=== PATIENT | male | born 1960 | race Caucasian/White ===

== ENCOUNTER 2022-04-24 09:15 | Outpatient (RCR) | payer BC, SELFPAY | END 2022-05-20 13:22 | disposition home or self-care (01) | PROVIDERS: PCP Student in an Organized Health Care Education/Training Program; Visit Provider Physician Assistant Surgical | DX: Z98.890 Other specified postprocedural states (principal); Z51.89 Encounter for other specified aftercare | CPT/HCPCS: 97110; 97140; 97535 ==

== ENCOUNTER 2023-06-04 16:19 | Emergency (ER) | payer BC, SELFPAY ==
[2023-06-04] VITALS (32 sets, daily range): BP systolic 124–169; BP diastolic 56–85; PULSE 63–75; RESP 18; TEMP 36.9; O2SAT 94–98; BMI 24.2
--- NOTE | 2023-06-04 16:31 | CRLHL7_ITS ---
For Patients: As a result of the 21st Century Cures Act, medical imaging exams and procedure reports are released immediately into your electronic medical record. You may view this report before your referring provider. If you have questions, please contact your health care provider. INDICATION: Horse fell on patient, trauma COMPARISON: Same-day chest radiograph. TECHNIQUE: CT of the chest, abdomen, and pelvis with intravenous contrast. Multiplanar axial, coronal, and sagittal reformats were reconstructed. MIP images to improve detection of pulmonary nodules are included. Intravenous contrast: 74 mL Isovue 370. Oral contrast was not administered. FINDINGS: CHEST: Lungs: Inspiratory phase imaging. No nodules or masses. Mild right basilar atelectasis. Moderate left basilar atelectasis.. Normal appearance of the pulmonary interstitium. Pleura: Trace bilateral pleural effusion. Moderate to large left pneumothorax without any mediastinal shift. Trace right pneumothorax. Airway: Normal tracheobronchial tree. Lymph nodes: No thoracic adenopathy. Mediastinum: No pneumomediastinum. Heart and great vessels: No pericardial effusion. Normal cardiac chamber size. No atherosclerotic plaques. No aortic aneurysm. Bones: Right 5th, posterolateral, displaced by a full rib width. Right 6th posterolateral, minimally displaced. Right posterolateral 9th, minimally displace Left anterior 3rd, minimally displaced. Left lateral and anterior 4th, nondisplaced. Chest wall: Subcutaneous edema ABDOMEN AND PELVIS: Liver: Normal. No laceration. No subcapsular hematoma. Patent vasculature.. Gallbladder and biliary tree: Normal gallbladder. No biliary duct dilation. Pancreas: Normal. Spleen: Normal size. Adrenal glands: Normal. No nodules. Kidneys and bladder: Normal size and position. Few small hypodense renal lesions are likely cysts. No solid mass seen. No calculi. No urinary tract dilation. The urinary bladder is normal. GI: Normal. No dilated segments. No abnormal bowel wall thickening. Small stool burden. The appendix is normal. No mesenteric hematoma. No free air. Vessels: Normal caliber abdominal aorta with no calcified atherosclerotic plaques. Peritoneum: No free fluid. Lymph nodes: No adenopathy. Pelvis: Physiologic appearance of the pelvic organs. Bones: No fractures. No focal bone lesions. Normal for age. Abdominal wall: Normal. No hematoma. IMPRESSION: 1. Multiple bilateral rib fractures, some displaced. Trace right and moderate left pneumothorax, without mediastinal shift. Appearance is similar to the recent prior chest radiograph. 2. No abdominopelvic visceral injury. Please note that all CT scans at this facility use dose modulation, iterative reconstruction, and/or weight-based dosing when appropriate to reduce radiation dose to as low as reasonably achievable. Dictated by Lela Avila MD @ 06/04/2023 6:16:21 PM (Electronically Signed)
--- NOTE | 2023-06-04 16:32 | CRLHL7_ITS ---
For Patients: As a result of the Century Cures Act, medical imaging exams and procedure reports are released immediately into your electronic medical record. You may view this report before your referring provider. If you have questions, please contact your health care provider. INDICATION: Crush injury. A horse fell on the patient COMPARISON: None TECHNIQUE: CT examination of the cervical spine is performed without contrast using spiral technique. Thin axial, sagittal and coronal reconstructions were made. Please note that all CT scans at this facility use dose modulation, iterative reconstruction, and/or weight-based dosing when appropriate to reduce radiation dose to as low as reasonably achievable. FINDINGS: : Alignment appears normal. There is no lytic or blastic lesion and there is no acute fracture, dislocation or destructive process. There are minor degenerative changes. There are bilateral pneumothoraces, left larger than right. I discussed the presence of the bilateral pneumothorax with Dr. Blanco at 5:40 p.m. on June 04, 2023 IMPRESSION: No acute posttraumatic findings regarding the osseous structures of the thoracic spine. There are bilateral pneumothoraces. Please review the report of the chest, abdomen and pelvis for further details regarding this finding Please note that all CT scans at this facility use dose modulation, iterative reconstruction, and/or weight-based dosing when appropriate to reduce radiation dose to as low as reasonably achievable. Dictated by Khang Marcial MD @ 06/04/2023 5:43:21 PM (Electronically Signed)
--- NOTE | 2023-06-04 16:32 | CRLHL7_ITS ---
For Patients: As a result of the Century Cures Act, medical imaging exams and procedure reports are released immediately into your electronic medical record. You may view this report before your referring provider. If you have questions, please contact your health care provider. INDICATION: A horse fell on the patient. COMPARISON: None prior to today TECHNIQUE: A single view of the chest was acquired FINDINGS: TUBES AND LINES: None. HEART AND MEDIASTINUM: The heart size is normal. The mediastinal contour appears normal for patient age. LUNGS AND PLEURAL SPACES: Moderate-sized left pneumothorax and possibly a tiny right apical pneumothorax.Left basilar airspace process probably atelectasis or contusion. No visible pleural effusion OSSEOUS STRUCTURES: Multiple bilateral rib fracturesscrew. IMPRESSION: 1. Multiple bilateral rib fractures. Moderate-sized left pneumothorax and possible tiny right apical pneumothorax. No pleural effusion. 2. Left basilar airspace process probably atelectasis or contusion 3. I discussed this case with Dr. Blanco at 5:35 p.m. on June 04, 2023 Dictated by Khang Marcial MD @ 06/04/2023 5:39:41 PM (Electronically Signed)
--- NOTE | 2023-06-04 16:32 | CRLHL7_ITS ---
For Patients: As a result of the Century Cures Act, medical imaging exams and procedure reports are released immediately into your electronic medical record. You may view this report before your referring provider. If you have questions, please contact your health care provider. INDICATION: Injury. Crush injury by a horse. COMPARISON: None TECHNIQUE: CT examination of the head was performed as axial sections without intravenous contrast. Images were obtained from the vertex of the skull through the skull base. Please note that all CT scans at this facility use dose modulation, iterative reconstruction, and/or weight-based dosing when appropriate to reduce radiation dose to as low as reasonably achievable. FINDINGS: The brain shows no sign of mass lesion, mass effect, hemorrhage, or edema. The ventricles and sulci are normal in appearance for the patient`s age. The visualized portions of the orbits are normal in appearance. The osseous structures are normal in their appearance with no sign of abnormality in the skull base or calvarium. Incidental significant appearing sinus mucosal inflammatory disease especially the left maxillary sinus. IMPRESSION: Some limitation due to motion but no definite acute intracranial posttraumatic finding. Incidental significant appearing sinus mucosal inflammatory disease, especially the left maxillary sinus. Please note that all CT scans at this facility use dose modulation, iterative reconstruction, and/or weight-based dosing when appropriate to reduce radiation dose to as low as reasonably achievable. Dictated by Khang Marcial MD @ 06/04/2023 5:45:47 PM (Electronically Signed)
[2023-06-04] MEDS: ONDANSETRON 2 MG/ML inj 4 MG IVP (16:35)
[2023-06-04] MEDS: MORPHINE 4 MG/ML INJ IVP ×3 (16:37→18:56)
[2023-06-04 16:40] LABS: Basophils Percent Auto 0.6 % (0.0-3.0); Hematocrit 42.7 % (37.0-53.0); Hemoglobin* 14.2 gm/dL (13.5-17.5); Immature Granulocytes Pct Auto 0.4 %; Lymphocytes Percent Auto 17.6 % (20-44); Mean Corpuscular HGB Conc 33 gm/dL (32-36); Mean Corpuscular Hemoglobin 30 pg (26-34); Mean Corpuscular Volume 91 fL (80-100); Monocytes Percent Auto 6.1 % (0.0-11.0); Neutrophils Percent Auto 72.3 % (42.0-72.0); Platelet Count* 280 K/uL (140-440); RDW Coefficient of Variation % 12.6 % (11.5-15.5); Red Blood Count 4.71 m/uL (4.30-5.90); White Blood Count* 11.39 K/uL (4.50-11.00)
[2023-06-04 16:47] LABS: Slide Review Reflex No
--- NOTE | 2023-06-04 16:53 | ED.GENADULT ---
HPI - General Adult General Date Seen: 06/11/23 Chief complaint: Fall/Minor Trauma Stated complaint: Landed on by horse--ribs injured, hard to breathe Time Seen by Provider: 06/04/23 16:31 Source: patient Mode of arrival: ambulatory Limitations: no limitations History of Present Illness HPI narrative: Patient is 63-year-old male with no pertinent medical problems presenting to the emergency department for difficulty breathing. He states shortly prior to arrival he was riding a horse when he fell backwards landing on top of him. Says most of his pain is to his right chest it is difficult for him to breathe right now. He is unsure if the difficulties due to the pain or if it was from the something else. Also complaining of left ankle pain. States he did not hit his head. Denies any other injuries at this time. Patient is sitting up in bed right now and looks very uncomfortable. Related Data Home Medications Medication Instructions Recorded Confirmed levothyroxine 88 mcg tablet 88 mcg PO DAILY 03/25/22 06/04/23 tamsulosin 0.4 mg capsule (Flomax) 0.4 mg PO DAILY 03/26/22 06/04/23 metronidazole 250 mg tablet 250 mg PO BID 06/04/23 06/04/23 rosuvastatin 40 mg tablet 40 mg PO DAILY 06/04/23 06/04/23 Allergies Allergy/AdvReac Type Severity Reaction Status Date / Time aspirin Allergy Severe Throat Verified 06/04/23 17:24 swelling codeine Allergy Severe Throat Verified 06/04/23 17:24 swelling Review of Systems Status of ROS: Reports: 10 or more systems reviewed and unremarkable except as noted in History and below [facility] Medical History Arthritis GERD (gastroesophageal reflux disease) Hyperlipidemia Thyroid disease Surgical History History of herniorrhaphy History of shoulder surgery History of surgery on left wrist History of surgery on upper extremity (02/11/22) Family History Father Stroke Esophageal cancer Social History (Updated 05/28/22 @ 08:47 by Dafne Davis ~ [place], [facility] [address]) Narrative: former chewing tobacco user quit 2006 Smoking Status: Never smoker Do you use any of these nicotine containing products: None Second hand tobacco smoke exposure: No How often do you have a drink containing alcohol: 2-3 times a week How many standard drinks containing alcohol do you have on a typical day: 1 or 2 How often do you have six or more drinks on one occasion: Never AUDIT-C Alcohol total score: 3 Non-prescribed substance use: denies use service: No Exam Narrative: Exam Narrative: Const: Well-nourished, Well-developed, in moderate distress Eyes: PERRL, no conjunctival injection, and symmetrical lids HENT: Atraumatic external nose and ears. Moist mucous membranes. Neck: Symmetric, trachea midline, No thyromegaly. CVS: RRR, No murmurs or gallops. Peripheral pulses 2+ and equal in all extremities RESP: Increased respiratory at rest for t. Clear to auscultation bilaterally. GI: Nontender/Nondistended, No rebound or guarding. MSK: Swelling and pain noted left ankle. No other pain noted on palpation other than right chest. No midline spinal tenderness Skin: Warm, Dry. Multiple abrasions to left shoulder Neuro: Normal Muscle tone, No focal neurological deficits. GCS 15 Psych: Awake, Alert, & Oriented x3. Appropriate mood and affect. Const: Vital Signs, click to edit/add: Vital Signs - 24 hr 06/04/23 16:39 06/04/23 16:40 06/04/23 16:41 Temperature 98.5 F Pulse Rate 70 67 Pulse Rate [Right Pulse Oximeter] 73 Respiratory Rate 18 Blood Pressure 164/81 H Blood Pressure [Le ft Upper Arm] 169/85 H Pulse Oximetry 98 98 98 Oxygen Delivery Me thod Room Air 06/04/23 16:41 06/04/23 16:42 06/04/23 16:43 Temperature Pulse Rate 67 65 66 Pulse Rate [Right Pulse Oximeter] Respiratory Rate Blood Pressure 157/81 H Blood Pressure [Le ft Upper Arm] Pulse Oximetry 97 98 98 Oxygen Delivery Me thod 06/04/23 16:50 06/04/23 16:52 06/04/23 17:26 Temperature Pulse Rate 65 64 68 Pulse Rate [Right Pulse Oximeter] Respiratory Rate Blood Pressure 156/81 H 141/70 H Blood Pressure [Le ft Upper Arm] Pulse Oximetry 97 97 98 Oxygen Delivery Me thod 06/04/23 17:27 06/04/23 17:28 06/04/23 17:30 Temperature Pulse Rate 70 68 Pulse Rate [Right Pulse Oximeter] Respiratory Rate Blood Pressure Blood Pressure [Le ft Upper Arm] Pulse Oximetry 97 97 95 Oxygen Delivery Me thod 06/04/23 17:32 06/04/23 17:40 06/04/23 17:47 Temperature Pulse Rate 70 66 67 Pulse Rate [Right Pulse Oximeter] Respiratory Rate Blood Pressure 147/68 H 141/70 H Blood Pressure [Le ft Upper Arm] Pulse Oximetry 96 95 98 Oxygen Delivery Me thod 06/04/23 17:50 06/04/23 18:00 06/04/23 18:02 Temperature Pulse Rate 68 67 Pulse Rate [Right Pulse Oximeter] Respiratory Rate Blood Pressure 129/56 L Blood Pressure [Le ft Upper Arm] Pulse Oximetry 98 98 Oxygen Delivery Me thod 06/04/23 18:10 06/04/23 18:17 06/04/23 18:20 Temperature Pulse Rate 70 69 69 Pulse Rate [Right Pulse Oximeter] Respiratory Rate Blood Pressure 134/68 Blood Pressure [Le ft Upper Arm] Pulse Oximetry 96 95 95 Oxygen Delivery Me thod 06/04/23 18:30 06/04/23 18:32 Temperature Pulse Rate 72 73 Pulse Rate [Right Pulse Oximeter] Respiratory Rate Blood Pressure 149/70 H Blood Pressure [Le ft Upper Arm] Pulse Oximetry 97 96 Oxygen Delivery Me thod Course Vital Signs Vital signs: Initial Vital Signs Pulse Rate 70 06/04/23 16:39 Pulse Oximetry 98 06/04/23 16:39 Vital Signs Pulse Rate 70 06/04/23 16:39 Pulse Oximetry 98 06/04/23 16:39 Temperature 98.5 F 06/04/23 16:41 Pulse Rate 73 06/04/23 18:32 Respiratory Rate 18 06/04/23 16:41 Blood Pressure 149/70 H 06/04/23 18:32 Pulse Oximetry 96 06/04/23 18:32 Oxygen Delivery Method Room Air 06/04/23 16:41 Medical Decision Making MDM Narrative Medical decision making narrative: Patient 63-year-old male presenting emergency department after a horse fell on him. Due to the nature of the incident the team trauma activation was called. I was at the patient's bedside immediately upon arrival to the emergency department. He is complaining of right-sided chest pain in difficulty breathing. He is tender palpation the right side of the chest but is talking in full sentences. At this into lung sounds and her lung sounds throughout. At this time is not you to be having tension pneumothorax. I causing immediate chest x-ray at bedside. They came undone it and you could clearly see several rib fractures. I cannot definitively tell if he has any pneumothoraxes at this time. Did initially with injury a laguna scan of this patient was ordered. Also ordered x-rays of his left ankle and foot due to pain. Patient was given morphine for pain. CBC and BMP were ordered. Lab work returns showing no concerning abnormalities. After the CT scan of the chest returned to could clearly see a moderate-sized left pneumothorax and a small right pneumothorax. For patient appears to have multiple rib fractures. We will transfer the patient [facility]. I spoke to Dr. Archer and he recommends a 14 Barbadian catheter at least for traumas and recommends against the pigtail at this time says because he states the trauma team prefers 14 Barbadian and larger in traumas even if there is only a pneumothorax. The largest size we had near the 14 Barbadian was a 20 Barbadian and this was placed. See procedure note. Patient tolerated the procedure well. Postprocedure chest x-ray was ordered. Patient's CT results have returned showing multiple rib fractures bilaterally. They range in and nondisplaced to 1 full rib segment displaced. Cervical spine head CT showed no concerning abnormalities. X-rays of the foot returned showing concern for an avulsion fracture. He is going to a level 1 trauma center and Renal-necessary to worry about splinting his foot right now as it is more important he gets transferred sooner. Imaging shows no acute intra-abdominal issues. Patient will be transferred via [facility] Lab Data Labs: Lab Results 06/04/23 Range/Units 14:33 WBC 11.39 H (4.50-11.00) K/uL RBC 4.71 (4.30-5.90) m/uL Hgb 14.2 (13.5-17.5) gm/dL Hct 42.7 (37.0-53.0) % MCV 91 (80-100) fL MCH 30 (26-34) pg MCHC 33 (32-36) gm/dL RDW Coeff of Ayla 12.6 (11.5-15.5) % Plt Count 280 (140-440) K/uL Neut % (Auto) 72.3 H (42.0-72.0) % Lymph % (Auto) 17.6 L (20-44) % [place] % (Auto) 6.1 (0.0-11.0) % Eos % (Auto) 3.0 (0.0-7.0) % Baso % (Auto) 0.6 (0.0-3.0) % Neut # (Auto) 8.20 H (1.7-7.0) K/uL Lymph # (Auto) 2.00 (0.90-2.90) K/uL [place] # (Auto) 0.70 (0.00-0.90) K/UL Eos # (Auto) 0.30 (0.00-0.50) K/uL Baso # (Auto) 0.10 (0.00-0.30) K/uL Abs Immat Gran (auto) 0.00 (0.00-0.30) K/uL Imm/Tot Granulo (auto) 0.4 % Sodium 137 (135-149) mmol/L Potassium 4.0 (3.6-5.1) mmol/L Chloride 99 (96-114) mmol/L Carbon Dioxide 29 (20-32) mmol/L Anion Gap 9 (7-15) mEq/L BUN 19 (7-30) mg/dL Creatinine 0.9 (0.5-1.5) mg/dL Estimated Creat Clear 70.00 Estimated GFR 97 ml/min Glucose 141 H (60-115) mg/dL Calcium 9.8 (8.4-10.6) mg/dL Critical Care Time Critical Care Time Critical Care Time: Yes Attestation: The patient required my highest level preparedness to intervene emergently and I personally spent this critical care time directly and personally managing the patient. This critical care time included: Obtaining a history; Examining the patient; Pulse oximetry; Ordering and reviewing of studies; Arranging urgent treatment with development of a management plan; Evaluation of patients response to treatment; Frequent reassessment discussions with other providers. This critical care time was performed to assess and manage the high probability of imminent life-threatening deterioration that could result in multiorgan failure. It was exclusive of separate billable procedures and treating other patients and teaching time. Total Critical Care Time in Minutes: 33 Discharge Plan Discharge Clinical Impression: Multiple fractures of rib involving four or more ribs Pneumothorax Qualifiers: Pneumothorax type: traumatic Encounter type: initial encounter Qualified Code(s): S27.0XXA - Traumatic pneumothorax, initial encounter Patient Disposition: Xfer Other Discharge Location: [facility] Condition: Stable Prescriptions: No Action levothyroxine 88 mcg tablet 88 mcg PO DAILY tamsulosin [Flomax] 0.4 mg capsule 0.4 mg PO DAILY rosuvastatin 40 mg tablet 40 mg PO DAILY metronidazole 250 mg tablet 250 mg PO BID Stand Alone Forms: [employer] Info Instructions Procedures Chest Tube Chest Tube 1: Pre procedure diagnosis: Pneumothorax Post procedure diagnosis: Pneumothorax Written consent by: patient Procedure: placement Site marking: site marked Verification/time out: correct patient, correct site and correct procedure Name of person performing procedure: Milton Blanco Local Anesthetic: lidocaine 1% Amount of anesthesia used (mL): 8 Chest Tube Location: left, mid axillary line and fourth interspace Tube type: chest tube (16 inch 20 Barbadian) Chest Tube Prep: Yes betadine prep and sterile drapes applied Incision Made With: #11 blade Post Procedure: sutured to skin and sterile dressing applied Tube Drainage: none Post Procedure CXR?: Yes Estimated blood loss (if any): less than 5mls Patient Tolerated Procedure: Yes
[2023-06-04 16:54] LABS: Chloride* 99 mmol/L (96-114)
--- NOTE | 2023-06-04 16:54 | CRLHL7_ITS ---
For Patients: As a result of the Century Cures Act, medical imaging exams and procedure reports are released immediately into your electronic medical record. You may view this report before your referring provider. If you have questions, please contact your health care provider. INDICATION: Fall COMPARISON: Same-day foot radiograph TECHNIQUE: Three views left ankle. FINDINGS: BONES: Linear osseous fragment measuring about 7 mm seen at the lateral mid foot. Donor site not clear. This corresponds to the fracture also seen on the radiographs from today. Normal mineralization. No focal bone lesion. JOINT: Normal ankle joint alignment. No ankle joint effusion. Joint spaces: Normal. SOFT TISSUES: Swelling. No foreign body. IMPRESSION: Left lateral midfoot avulsive fracture, of unclear donor site. Dictated by Lela Avila MD @ 06/04/2023 6:20:59 PM (Electronically Signed)
--- NOTE | 2023-06-04 16:54 | CRLHL7_ITS ---
For Patients: As a result of the Cures Act, medical imaging exams and procedure reports are released immediately into your electronic medical record. You may view this report before your referring provider. If you have questions, please contact your health care provider. INDICATION: Trauma, fall COMPARISON: Same day ankle radiographs TECHNIQUE: Three views left foot. FINDINGS: BONES: Bone fragment along the lateral distal calcaneus, near the calcaneocuboid articulation. Donor site not clear. Fragment is about 9 mm in longest dimension. Type 2 navicular. Normal mineralization. No focal bone lesion. JOINT: Normal joint alignment. Joint spaces: Normal. Soft Tissues: Swelling. No foreign body. IMPRESSION: Avulsive type fracture along the lateral distal calcaneus, of unclear origin. Dictated by Lela Avila MD @ 06/04/2023 6:19:23 PM (Electronically Signed)
[2023-06-04 16:55] LABS: Sodium* 137 mmol/L (135-149)
[2023-06-04 16:57] LABS: Anion Gap 9 mEq/L (7-15); Carbon Dioxide* 29 mmol/L (20-32); Creatinine* 0.9 mg/dL (0.5-1.5); Estimated Glomerular Filt Rate 97 ml/min
[2023-06-04 16:58] LABS: Blood Urea Nitrogen* 19 mg/dL (7-30); Calcium* 9.8 mg/dL (8.4-10.6); Glucose* 141 mg/dL (60-115)
--- NOTE | 2023-06-04 18:48 | CRLHL7_ITS ---
For Patients: As a result of the Century Cures Act, medical imaging exams and procedure reports are released immediately into your electronic medical record. You may view this report before your referring provider. If you have questions, please contact your health care provider. INDICATION: Chest tube placement TECHNIQUE: Chest 1 view. Permanently recorded images are archived. COMPARISON: Chest radiograph from earlier the same day. FINDINGS: Lines and tubes: Interval placement of a left apical directed chest tube. Cardiovascular and mediastinum: Heart size and vasculature are normal in caliber and appearance. Lungs and pleural spaces: Persistent left basilar opacity. No pleural effusion. No definite pneumothorax visualized. Bones and soft tissues: Multiple bilateral rib fractures. IMPRESSION: Interval placement of a left apical E directed chest tube. No pneumothorax visualized bilaterally. Persistent left basilar opacity, likely atelectasis or contusion. Dictated by Neymar Sanchez MD @ 06/04/2023 8:09:12 PM (Electronically Signed)
--- NOTE | 2023-06-04 19:25 | ED.NURSE ---
to [facility] via [facility]. 2nd iv was placed in left hand #18 j.
--- NOTE | 2023-06-04 19:31 | ED.NURSE ---
report was called to yessy mchugh at [facility] [place].
== END 2023-06-04 19:25 | disposition other institution (70) ==
PROVIDERS: Emergency Provider Student in an Organized Health Care Education/Training Program; PCP Student in an Organized Health Care Education/Training Program
DX: S27.0XXA Traumatic pneumothorax, initial encounter (principal); S22.43XA Multiple fractures of ribs, bilateral, initial encounter for closed fracture; V80.010A Animal-rider injured by fall from or being thrown from horse in noncollision accident, initial encounter
CPT/HCPCS: 32551; 36415; 70450; 71045; 71260; 72125; 73610; 73630; 74177; 80048; 85025; 94761; 96374; 96375; 96376; 99284; 99291; J2270; J2405; Q9967

== ENCOUNTER 2023-06-04 19:13 | Outpatient (CLI) | payer BC, SELFPAY ==
--- OUTSIDE RECORDS SUMMARY | 2023-06-07 14:32 | XMS_ITS | Continuity of Care Document ---
Author Name Unknown Organization [facility] Address [address] [address] [place] [address] Phone Care Team Providers Care Jet Handler Name Role Phone Kelsi Buckley CRNA Unavailable Unavailable Allergies, Adverse Reactions, Alerts Substance Reaction Status Criticality codeine inflammation of airways Active No I nformation aspirin inflammation of airways Active No I nformation Medications Medication Instructions Dosage Effective Dates (start - stop) Status Comments tamsulosin 0.4 mg capsule take 1 capsule by oral route every day 1/2 hour following the same meal each day 0.4 MG - Active levothyroxine 88 mcg capsule take 1 Tablet by Oral route every day 1 Tablet - Active GLUCOSAMINE SULFATE (unknown strength) take by Oral route every day Not Available - Active Vitamin D3 2,000 unit capsule take 1 by Oral route every 1 - Active rosuvastatin 40 mg tablet take 1 tablet by oral route every day 40 MG - No Longer Active Synthroid 75 mcg tablet take 1 tablet by ORAL route every day 75 MCG - No Longer Active simvastatin 20 mg tablet take 1 tablet (20MG) by ORAL route every day 20 MG - No Longer Active ranitidine 150 mg capsule take 1 capsule (150MG) by oral route 2 times every day - Mar-31-2023 No Longer Active Procedures Procedure Date Colonoscopy Flex; W/bx 1/mx Level Iv-surg Path Gross/micro 23 Colonoscopy Flex; W/remov Les- 17 Level Iv-surg Path Gross/micro 17 Colonoscopy Flex; W/remov Les- 12 Level Iv-surg Path Gross/micro 12 Advance Directives Directive Yes / No Effective Date File Name No Information Encounters Encounter Description Practice Location Reason(s) For Visit Diagnoses Date Provider Providers Copied on Encounter [facility], [address] [address], [place], [place], [id number], [place] tel:[phone] [facility] No Information 3 Marcio Dolan. [address], [id number], [place]. tel:[phone] Referring Provider: Jacky Ma, [address], [address]. tel:[phone] [facility], [address] [address], [place], [place], [id number], [place] tel:[phone] [facility] GI Symptoms or Concerns (chief complaint) Polyp of colonEncounter for screening for malignant neoplasm of colonPersonal history of colonic polypsBenign neoplasm of ascending colonBenign neoplasm of sigmoid colonBenign neoplasm of ascending colon 3 Virgie Rico. [address], [id number], [place]. tel:[phone] Referring Provider: Referral Self. [facility], [address] [address], [place], [place], [id number], [place] tel:[phone] [facility] No Information 3 Jun Quiñonez. [address] [facility], [address], [id number], [place]. tel:[phone] [facility], [address] [address], [place], [place], [id number], [place] tel:[phone] [facility] Colorectal polyp detected on colonoscopyEncou nter for screening for malignant neoplasm of colonBenign neoplasm of transverse colonPersonal history of colonic polyps 7 Jason Man. [address], [id number], [place]. tel:[phone] Referring Provider: Referral Self. [facility], [address] [address], [place], [place], [id number], tel:[phone] [facility] Colon Cancer ScreeningBenign Neoplasm ColonColon Cancer ScreeningBenign Neoplasm Colon 2 Jase Campbell. 3001 [facility] [address], [place], [id number], [place]. tel:[phone] Family History Family Member Type Diagnosis Age At Onset Daughter Problem (finding) Alive and well Father Problem (finding) Cancer, esophageal Son Problem (finding) Alive and well Father Problem (finding) Father Problem (finding) malignant neoplasm of p harynx Mother Problem (finding) Sister Problem (finding) Alive and well Brother Problem (finding) Alive and well Father Problem (finding) Colon polyps Daughter Problem (finding) Thyroid disorder Immunizations Vaccine Date Status Comments Afluria Qd administered Note: [facility] bi-directional interface ; Source: Other Registry SARS-COV-2 (COVID-19) vaccin e, mRNA, spike protein, LNP, preservative free, 30 mcg/0.3mL dose administered Note: [facility] bi-direct ional interface ; Source: Other Registry SARS-COV-2 (COVID-19) vaccin e, mRNA, spike protein, LNP, preservative free, 30 mcg/0.3mL dose administered Note: [facility] bi-direct ional interface ; Source: Other Registry SARS-COV-2 (COVID-19) vaccin e, mRNA, spike protein, LNP, preservative free, 30 mcg/0.3mL dose administered Note: [facility] bi-direct ional interface ; Source: Other Registry Afluria Qd administered Note: [facility] bi-directional interface ; Source: Other Registry Afluria Qd administered Note: [facility] bi-directional interface ; Source: Other Registry zoster vaccine recombinant administered N ote: [facility] bi-directional interface ; Source: Other Registry zoster vaccine recombinant administered N ote: [facility] bi-directional interface ; Source: Other Registry Seasonal, quadrivalent, recombinant, injectable influenza vaccine, preservative free administered Note: [facility] bi-direct ional interface ; Source: Other Registry Afluria Qd administered Note: [facility] bi-directional interface ; Source: Other Registry Afluria Qd administered Note: [facility] bi-directional interface ; Source: Other Registry Afluria Qd administered Note: [facility] bi-directional interface ; Source: Other Registry Afluria Qd administered Note: [facility] bi-directional interface ; Source: Other Registry Afluria Qd administered Note: [facility] bi-directional interface ; Source: Other Registry tetanus toxoid, reduced diphtheria toxoid, and acellular pertussis vaccine, adsorbed administered Note: [facility] b i-directional interface ; Source: Other Registry Afluria Qd administered Note: [facility] bi-directional interface ; Source: Other Registry Influenza, seasonal, injectable administe red Note: [facility] bi- directional interface ; Source: Other Registry Influenza, seasonal, injectable administe red Note: [facility] bi- directional interface ; Source: Other Registry Influenza, seasonal, injectable administe red Note: [facility] bi- directional interface ; Source: Other Registry Afluria Qd administered Note: [facility] bi-directional interface ; Source: Other Registry Novel [id number], all formulations administered Note: [facility] bi-direct ional interface ; Source: Other Registry Influenza, seasonal, injectable administe red Note: [facility] bi- directional interface ; Source: Other Registry Guyanese Encephalitis Vaccine [facility] administ ered Note: [facility] bi- directional interface ; Source: Other Registry typhoid vaccine, live, oral administered Note: [facility] bi-directional interface ; Source: Other Registry Guyanese Encephalitis Vaccine [facility] administ ered Note: [facility] bi- directional interface ; Source: Other Registry Influenza, seasonal, injectable administe red Note: [facility] bi- directional interface ; Source: Other Registry Payers Payer name Insurance type Covered green party ID Authoriza titank(s) Blue Plus Of [facility] [id number] Social History Type Description Quantity Date Captured Comments Sex Male Smoking Status No Information Chief Complaint And Reason For Visit No Information Reason For Referral Reason For Referral No Information History Of Present Illness Encounter Date Complaint History Of Prese nt Illness GI Symptoms or Concerns Functional Status Date Functional Assessmen t No Information Medications Administered Medication Instructions Dosage Effective Dates (start - stop) Status Comments rosuvastatin 40 mg tablet take 1 tablet by oral route every day 40 MG - No Longer Active Instructions Date Instruction Additional Infor mation Colon Polyps Related to Polyp of colon Colon Cancer Prevention Related to Polyp of colon Colon Polyps Related to Polyp of colon Colon Cancer Prevention Related to Polyp of colon Colon Cancer Prevention Related to Colorectal polyp detected on colonoscopy Colon Polyps Related to Color ectal polyp detected on colonoscopy Assessments Type Assessment Date No Information Patient Care Teams Name Effective Dates (start - stop) Status Members No Information
== END 2023-06-04 19:14 | disposition home or self-care (01) ==
LOC: AMB 06-07 14:30
PROVIDERS: PCP Student in an Organized Health Care Education/Training Program; Visit Provider Family Medicine
DX: J93.9 Pneumothorax, unspecified (principal); S22.49XS Multiple fractures of ribs, unspecified side, sequela
CPT/HCPCS: A0425; A0434

== ENCOUNTER 2024-01-07 07:44 | Outpatient (RCR) | payer BC, SELFPAY | END 2024-04-06 12:42 | disposition home or self-care (01) | PROVIDERS: PCP Student in an Organized Health Care Education/Training Program; Visit Provider Student in an Organized Health Care Education/Training Program | DX: H81.11 Benign paroxysmal vertigo, right ear (principal); Z51.89 Encounter for other specified aftercare | CPT/HCPCS: 97161 ==

== ENCOUNTER 2024-01-30 10:44 | Outpatient (CLI) | payer BC, SELFPAY ==
--- NOTE | 2024-01-30 11:00 | CRLHL7_ITS ---
For Patients: As a result of the Cures Act, medical imaging exams and procedure reports are released immediately into your electronic medical record. You may view this report before your referring provider. If you have questions, please contact your health care provider. Indication: Increasing cough, lung mass Technique: PA and lateral views of the chest. Comparison: 06/04/2023 Findings: Normal cardiomediastinal silhouette. No focal consolidation, pleural effusions, or visualized pneumothorax. Chronic right-sided rib fractures. Interval removal of left chest tube. Left humeral head suture anchors. Impression: No acute cardiopulmonary disease. No lung mass is visualized. Dictated by Ramirez Reyes MD @ 01/30/2024 12:17:03 PM (Electronically Signed)
== END 2024-01-30 10:45 | disposition home or self-care (01) ==
PROVIDERS: PCP Student in an Organized Health Care Education/Training Program; Visit Provider Surgery
DX: R91.8 Other nonspecific abnormal finding of lung field (principal); R05.9 Cough, unspecified
CPT/HCPCS: 71046

== ENCOUNTER 2024-02-23 07:22 | Outpatient (CLI) | payer BC, SELFPAY ==
[2024-02-23 07:50] LABS: Creatinine* 0.9 mg/dL (0.5-1.5); Estimated Glomerular Filt Rate 97 ml/min
--- NOTE | 2024-02-23 08:00 | CRLHL7_ITS ---
For Patients: As a result of the Century Cures Act, medical imaging exams and procedure reports are released immediately into your electronic medical record. You may view this report before your referring provider. If you have questions, please contact your health care provider. INDICATION: Left lung mass TECHNIQUE: CT chest with 75 mL Isovue 370 IV contrast. COMPARISON: 01/30/2024 and 06/04/2023 chest x-rays, 06/04/[address] FINDINGS: Lungs and pleura: New 2.4 x 1.8 x 4.2 cm mass in the medial left lung apex adjacent to the pleura in the left subclavian artery. This causes mass effect on the subsegmental bronchus that courses anterior. The tip of the chest tube was in this region on the 06/04/2023 chest x-ray. Remainder of the lungs are clear Heart and vasculature: Heart size is normal. Thoracic aorta and pulmonary artery are normal in caliber. Lymph nodes/mediastinum: No mediastinal, hilar, or axillary adenopathy. Thyroid gland is normal. Chest wall: No masses. Upper abdomen: Normal. Bones: Multiple chronic right rib fracture deformities. IMPRESSION: 1. 2.4 x 1.8 x 4.2 cm left lung apex mass is new from the prior CT. 2. No adenopathy. Please note that all CT scans at this facility use dose modulation, iterative reconstruction, and/or weight-based dosing when appropriate to reduce radiation dose to as low as reasonably achievable. Dictated by Poli Newton MD @ 02/24/2024 10:32:48 AM (Electronically Signed)
== END 2024-02-23 07:23 | disposition home or self-care (01) ==
LOC: CT 07:23
PROVIDERS: PCP Student in an Organized Health Care Education/Training Program; Visit Provider Surgery
DX: R91.8 Other nonspecific abnormal finding of lung field (principal)
CPT/HCPCS: 36415; 71260; 82565; Q9967

== ENCOUNTER 2024-07-30 09:00 | Outpatient (RCR) | payer BC, SELFPAY | END 2024-10-01 08:37 | disposition home or self-care (01) | PROVIDERS: PCP Student in an Organized Health Care Education/Training Program; Visit Provider Orthopaedic Surgery | DX: M75.41 Impingement syndrome of right shoulder (principal); M75.51 Bursitis of right shoulder; M75.20 Bicipital tendinitis, unspecified shoulder; S46.011D Strain of muscle(s) and tendon(s) of the rotator cuff of right shoulder, subsequent encounter; M25.511 Pain in right shoulder; Z51.89 Encounter for other specified aftercare | CPT/HCPCS: 97110; 97112; 97161; 97162 ==

== ENCOUNTER 2024-10-04 05:38 | Emergency (ER) | payer BC, SELFPAY ==
--- OUTSIDE RECORDS SUMMARY | 2024-10-04 05:40 | XMS_ITS | Encounter Summary ---
Author Organization [facility] Address [address] [place] [address] Care Team Providers Care Computer Customer Support Specialist Name Role Phone Solitario Trevino MD Primary Care Provider Abdirashid Lopez MD Primary Care Provider + [phone] Abdirashid Lopez MD Unavailable [phone] Abdirashid Lopez MD Unavailable [phone] Darshan Whyte Unavailable Unavailable Encounter Details Date Type Department Care Team (Late st Contact Info) Description 04/17/2013 MyC Medical Advice [facility] [address] [place] [phone] Solitario Trevino MD [address] [facility] [address] [place] [address] Social History Tobacco Use Types Packs/Day Years Used Date Smoking Tobacco: Never Smokeless Tobacco: Never Alcohol Use Standard Drinks/Week Comments Yes 0 (1 standard drink = 0.6 oz pur e alcohol) Occasionally Sex and Gender Information Value Date Recorded Sex Assigned at Male 06/25/2019 7:25 AM CDT 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 Gender Identity Male 06/25/2019 7:25 AM CDT Sexual Orientation Straight 06/25/2019 7: 25 AM CDT documented as of this encounter Plan of Treatment Not on file documented as of this encounter Visit Diagnoses Not on filedocumented in this encounter Care Teams Computer Customer Support Specialist Relationship Specialty Start Date End Date Solitario Trevino MD [address] [place] [address] PCP - General Internal Medicine 04/14/13 05/08/15 Abdirashid Lopez MD [address] [place] [address] PCP - General Family Practice 05/09/15 07/07/22 [place] [address] [place] [address] PCP - Assigned PCP 05/08/14 11/10/18 [place] [address] [place] [address] Assigned PCP 05/08/14 05/24/22 Darshan Whyte Personal Advocate & Liaison (PAL) Family Practice 06/22/20 07/02/20 documented as of this encounter
--- OUTSIDE RECORDS SUMMARY | 2024-10-04 05:40 | XMS_ITS | Encounter Summary ---
Author Organization [facility] Address [address] [place] [address]. [place] [address] Care Team Providers Care Oil Truck Driver Name Role Phone Abdirashid Lopez MD Primary Care Provider + [phone] Abdirashid Lopez MD Unavailable [phone] Abdirashid Lopez MD Unavailable [phone] Darshan Whyte Unavailable Unavailable Encounter Details Date Type Department Care Team (Late st Contact Info) Description 09/30/2018 MyC Medical Advice [address] [address] [place] [address] [place] [address] Social History Tobacco Use Types Packs/Day Years Used Date Smoking Tobacco: Never Smokeless Tobacco: Never Alcohol Use Standard Drinks/Week Comments Yes 3.3 (1 standard drink = 0.6 oz p ure alcohol) occ PHQ-2 Answer Date Recorded PHQ-2 Score 0 09/15/2018 Sex and Gender Information Value Date Recorded Sex Assigned at Male 06/25/2019 7:25 AM CDT 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 Gender Identity Male 06/25/2019 7:25 AM CDT Sexual Orientation Straight 06/25/2019 7: 25 AM CDT Occupation Industry Job Start Date Job End Date Not on file Not on file Not on file Not on file documented as of this encounter Plan of Treatment Not on file documented as of this encounter Visit Diagnoses Not on filedocumented in this encounter Care Teams Oil Truck Driver Relationship Specialty Start Date End Date Abdirashid Lopez MD PCP - General Family Practice 05/09/15 07/07/22 [place] [address] [place] [address] PCP - Assigned PCP 05/08/14 11/10/18 [place] [address] [place] [address] Assigned PCP 05/08/14 05/24/22 Darshan Whyte Personal Advocate & Liaison (PAL) [facility] Practice 06/22/20 07/02/20 documented as of this encounter
--- OUTSIDE RECORDS SUMMARY | 2024-10-04 05:40 | XMS_ITS | Clinical Summary ---
Author Organization [facility] Address [address] [place] [address] Care Team Providers Care Fire Adjuster Name Role Phone Unavailable Primary Care Provider Unavailabl e Allergies Active Allergy Reactions Criticality Noted Date Comments Aspirin 02/23/2008 Morphine And Codeine 02/23/2008 Medications Misc Natural Products (GLUCOSAMINE CHOND COMPLEX/MSM) TABSIndications:Florence garrett general medical examination at a health care facility 3 Active Cholecalciferol (VITAMIN D) 400 UNITS capsuleIndications: Vitamin D deficiency disease Take 1 capsule by mouth daily 30 capsule 3 Active levothyroxine (SYNTHROID/LEVOTHRO ID) 88 MCG tabletIndications:A cquired hypothyroidism Take 1 tablet (88 mcg) by mouth daily 90 tablet 3 0 Active simvastatin (ZOCOR) 20 MG tabletIndications:H yperlipidemia LDL goal <130 Take 1 tablet (20 mg) by mouth At Bedtime 90 tablet 4 0 Active omeprazole (PRILOSEC) [address] capsuleIndications: Gastroesophageal reflux disease without esophagitis TAKE 1 CAPSULE(40 MG) BY MOUTH DAILY 90 capsule 1 Active Active Problems Problem Noted Date Diagnosed Date Hypothyroidism 05/12/2014 Hyperlipidemia LDL goal <130 04/14/2013 GERD (gastroesophageal reflux disease) 3 Immunizations Name Administration Dates Next Due HEPA 04/19/2002,10/19/2001 HepB 04/19/2002,10/19/2001,09/14/2001 Influenza (IIV3) PF 06/15/2007 Influenza Vaccine 18-64 (Flublok) 06/10/2019 Influenza Vaccine >6 months,quad, PF 06/08/2020, 06/10/2018,05/30/2017 Anguillan Encephalitis SQ 03/09/2008,03/02/2008,0 02/23/2008 TDAP Vaccine (Adacel) 08/21/2004 TDAP Vaccine (Boostrix) 04/29/2014 Typhoid IM 10/19/2001 Typhoid Oral 02/23/2008 Yellow Fever 10/19/2001 Zoster recombinant adjuvanted (SHINGRIX) 020,06/28/2019 Family History Medical History Relation Comments Cancer Father age 68, Gas tric [place]. also had HTN, hi chol Coronary Artery Disease Mother Skin Cancer Mother Basal cell Relation Status Comments Father Mother Social History Tobacco Use Types Packs/Day Years Used Date Smoking Tobacco: Never Smokeless Tobacco: Never Alcohol Use Standard Drinks/Week Comments Yes 3.3 (1 standard drink = 0.6 oz p ure alcohol) occ PHQ-2 Answer Date Recorded PHQ-2 Score 0 06/20/2020 Adolescent Education Answer Date Record ed Getting School Help Needed Not on file 06/02 Sex and Gender Information Value Date Recorded Sex Assigned at Male 06/25/2019 7:25 AM CDT 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:39 AM CLINICAL AIDE Gender Identity Male 06/25/2019 7:25 AM CDT Sexual Orientation Straight 06/25/2019 7: 25 AM CDT Occupation Industry Job Start Date Job End Date Not on file Not on file Not on file Not on file Last Filed Vital Signs Vital Sign Reading Time Taken Comments Blood Pressure 112/64 06/20/2020 7:07 AM CDT Pulse 55 06/20/2020 7:07 AM CDT Temperature 36.6 C (97.9 F) 06/20/2020 7:07 AM CDT Respiratory Rate 16 06/20/2020 7:07 AM CDT Oxygen Saturation 97% 06/20/2020 7:07 AM CDT Inhaled Oxygen Concentration - - Weight 64.4 kg (142 lb) 06/20/2020 7:07 AM CDT Height 167.6 cm (5' 6) 06/20/2020 7:07 AM CDT Body Mass Index 22.92 06/20/2020 7:07 AM CDT Plan of Treatment Not on file [place] [address]
--- OUTSIDE RECORDS SUMMARY | 2024-10-04 05:40 | XMS_ITS | Encounter Summary ---
Author Organization [facility] Address [address] [place] [address] Care Team Providers Care Rerecording Mixer Name Role Phone Abdirashid Lopez MD Primary Care Provider + [phone] Abdirashid Lopez MD Unavailable [phone] Darshan Whyte Unavailable Unavailable Encounter Details Date Type Department Care Team (Late st Contact Info) Description 06/14/2019 MyC Medical Advice [address] [address] [place] [address] [place], [place] [id number] Social History Tobacco Use Types Packs/Day Years Used Date Smoking Tobacco: Never Smokeless Tobacco: Never Alcohol Use Standard Drinks/Week Comments Yes 3.3 (1 standard drink = 0.6 oz p ure alcohol) occ PHQ-2 Answer Date Recorded PHQ-2 Score 0 09/15/2018 Sex and Gender Information Value Date Recorded Sex Assigned at Male 06/25/2019 7:25 AM CDT 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 Gender Identity Male 06/25/2019 7:25 AM CDT Sexual Orientation Straight 06/25/2019 7: 25 AM CDT Occupation Industry Job Start Date Job End Date Not on file Not on file Not on file Not on file documented as of this encounter Plan of Treatment Not on file documented as of this encounter Visit Diagnoses Not on filedocumented in this encounter Care Teams Rerecording Mixer Relationship Specialty Start Date End Date Abdirashid Lopez MD PCP - General Family Practice 05/09/15 07/07/22 [place] [address] [facility] [place] [address] Assigned PCP 05/08/14 05/24/22 Darshan Whyte Personal Advocate & Liaison (PAL) Family Practice 06/22/20 07/02/20 documented as of this encounter
--- OUTSIDE RECORDS SUMMARY | 2024-10-04 05:40 | XMS_ITS | Encounter Summary ---
Author Organization [facility] Address [address] [place] [address] Care Team Providers Care Flight Deck Officer Name Role Phone Abdirashid Lopez MD Primary Care Provider + [phone] Abdirashid Lopez MD Unavailable [phone] Abdirashid Lopez MD Unavailable [phone] Darshan Whyte Unavailable Unavailable Encounter Details Date Type Department Care Team (Late st Contact Info) Description 05/30/2017 MyC Medical Advice [address] [address] Era Martinez, [facility] [address] [place], [place] [phone] Social History Tobacco Use Types Packs/Day Years Used Date Smoking Tobacco: Never Smokeless Tobacco: Never Alcohol Use Standard Drinks/Week Comments Yes 3.3 (1 standard drink = 0.6 oz p ure alcohol) occ Sex and Gender Information Value Date Recorded Sex Assigned at Male 06/25/2019 7:25 AM CDT 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:39 AM TOOL DISPATCHER Gender Identity Male 06/25/2019 7:25 AM CDT Sexual Orientation Straight 06/25/2019 7: 25 AM CDT Occupation Industry Job Start Date Job End Date Not on file Not on file Not on file Not on file documented as of this encounter Plan of Treatment Not on file documented as of this encounter Visit Diagnoses Not on filedocumented in this encounter Care Teams Flight Deck Officer Relationship Specialty Start Date End Date Abdirashid Lopez MD PCP - General Family Practice 05/09/15 07/07/22 [place] [address] [place] [address] PCP - Assigned PCP 05/08/14 11/10/18 [place] [address] [place] [address] Assigned PCP 05/08/14 05/24/22 Darshan Whyte Personal Advocate & Liaison (PAL) Family Practice 06/22/20 07/02/20 documented as of this encounter
--- OUTSIDE RECORDS SUMMARY | 2024-10-04 05:40 | XMS_ITS | Encounter Summary ---
Author Organization [facility] Address [address] [place] [address]. [place] [address] Care Team Providers Care Material Disposition Inspector Name Role Phone Abdirashid Lopez MD Primary Care Provider + [phone] Abdirashid Lopez MD Unavailable [phone] Abdirashid Lopez MD Unavailable [phone] Darshan Whyte Unavailable Unavailable Reason for Visit * Reason Onset Date Comments MyChart Communication 09/06/2015 Encounter Details Date Type Department Care Team (Late st Contact Info) Description 09/06/2015 MyC Medical [address] [address] [place] [address] [place] [address] MyChart Communication Social History Tobacco Use Types Packs/Day Years Used Date Smoking Tobacco: Never Smokeless Tobacco: Never Alcohol Use Standard Drinks/Week Comments Yes 3.3 (1 standard drink = 0.6 oz p ure alcohol) Sex and Gender Information Value Date Recorded Sex Assigned at Male 06/25/2019 7:25 AM CDT 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 Gender Identity Male 06/25/2019 7:25 AM CDT Sexual Orientation Straight 06/25/2019 7: 25 AM CDT Occupation Industry Job Start Date Job End Date Not on file Not on file Not on file Not on file documented as of this encounter Plan of Treatment Not on file documented as of this encounter Visit Diagnoses Not on filedocumented in this encounter Care Teams Material Disposition Inspector Relationship Specialty Start Date End Date Abdirashid Lopez MD PCP - General Family Practice 05/09/15 07/07/22 [place] [address] [place] [address] PCP - Assigned PCP 05/08/14 11/10/18 [place] [address] [place] [address] Assigned PCP 05/08/14 05/24/22 Darshan Whyte Personal Advocate & Liaison (PAL) Family Practice 06/22/20 07/02/20 documented as of this encounter
--- OUTSIDE RECORDS SUMMARY | 2024-10-04 05:40 | XMS_ITS | Encounter Summary ---
Author Organization [facility] Address [address] [place] [address]. [place] [address] Care Team Providers Care Hospital Insurance Clerk Name Role Phone Abdirashid Lopez MD Primary Care Provider + [phone] Abdirashid Lopez MD Unavailable [phone] Abdirashid Lopez MD Unavailable [phone] Darshan Whyte Unavailable Unavailable Reason for Visit * Reason Onset Date Comments Refill Request 09/25/2018 evothyroxine (SY NTHROID/LEVOTHROID) 88 MCG tablet Encounter Details Date Type Department Care Team (Late st Contact Info) Description 09/25/2018 MyC Refill [address] [address] [place] [address] [place] [address] Refill Request (evothyroxine (SYNTHROID/LE... 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 Gender Identity Male 06/25/2019 7:25 AM CDT Sexual Orientation Straight 06/25/2019 7: 25 AM CDT Occupation Industry Job Start Date Job End Date Not on file Not on file Not on file Not on file documented as of this encounter Miscellaneous Notes * Telephone Encounter - Era Martinez RN - 09/25/2018 10:22 AM CST New lab result in but not reviewed and advised by PCP Era Martinez RN, BSN Last Written Prescription Date: 06/12/18 Last Fill Quantity: 90, # refills: 0 Last office visit: 06/10/2018 with prescribing provider: Jessica Future Office Visit: Requested Prescriptions Pending Prescriptions Disp Refills ??? levothyroxine (SYNTHROID/LEVOTHROID) 88 MCG tablet 90 tablet 0 Sig: Take 1 tablet (88 mcg) by mouth daily Thyroid Protocol Passed - 09/25/2018 9:49 AM Passed - Patient is 12 years or older Passed - Recent (12 mo) or future (30 days) visit within the authorizing provider's specialty Patient had office visit in the last 12 months or has a visit in the next 30 days with authorizing provider or within the authorizing provider's specialty. See Patient Info tab in inbasket, or Choose Columns in Meds & Orders section of the refill encounter. Passed - Medication is active on med list Passed - Normal TSH on file in past 12 months Recent Labs Lab Test 09/23/18 0824 TSH 3.38 ICAL THER documented in this encounter Plan of Treatment Not on file documented as of this encounter Visit Diagnoses Diagnosis Hypothyroidism Unspecified hypothyroidism documented in this encounter Care Teams Hospital Insurance Clerk Relationship Specialty Start Date End Date Abdirashid Lopez MD PCP - General Family Practice 05/09/15 07/07/22 [place] [address] [place] [address] PCP - Assigned PCP 05/08/14 11/10/18 [place] [address] [place] [address] Assigned PCP 05/08/14 05/24/22 Darshan Whyte Personal Advocate & Liaison (PAL) Family Practice 06/22/20 07/02/20 documented as of this encounter
--- OUTSIDE RECORDS SUMMARY | 2024-10-04 05:40 | XMS_ITS | Encounter Summary ---
Author Organization [facility] Address [address] [place] [address] Care Team Providers Care Insurance Follow Up Specialist Name Role Phone Abdirashid Lopez MD Primary Care Provider + [phone] Abdirashid Lopez MD Unavailable [phone] Abdirashid Lopez MD Unavailable [phone] Darshan Whyte Unavailable Unavailable Encounter Details Date Type Department Care Team (Late st Contact Info) Description 07/14/2015 [facility] [place] [address] [address] Chen Rosario Social History Tobacco Use Types Packs/Day Years Used Date Smoking Tobacco: Never Smokeless Tobacco: Never Alcohol Use Standard Drinks/Week Comments Yes 3.3 (1 standard drink = 0.6 oz p ure alcohol) Sex and Gender Information Value Date Recorded Sex Assigned at Male 06/25/2019 7:25 AM CDT 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 Gender Identity Male 06/25/2019 7:25 AM CDT Sexual Orientation Straight 06/25/2019 7: 25 AM CDT Occupation Industry Job Start Date Job End Date Not on file Not on file Not on file Not on file documented as of this encounter Plan of Treatment Not on file documented as of this encounter Visit Diagnoses Not on filedocumented in this encounter Care Teams Insurance Follow Up Specialist Relationship Specialty Start Date End Date Abdirashid Lopez MD PCP - General Family Practice 05/09/15 07/07/22 [place] [address] [place] [address] PCP - Assigned PCP 05/08/14 11/10/18 [place] [address] [place] [address] Assigned PCP 05/08/14 05/24/22 Darshan Whyte Personal Advocate & Liaison (PAL) Family Practice 06/22/20 07/02/20 documented as of this encounter
--- OUTSIDE RECORDS SUMMARY | 2024-10-04 05:40 | XMS_ITS | Encounter Summary ---
Author Organization [facility] Address [address] [place] [address]. [place] [address] Care Team Providers Care Awnings Mechanic Name Role Phone Solitario Trevino MD Primary Care Provider [phone] Abdirashid Lopez MD Primary Care Provider + [phone] Abdirashid Lopez MD Unavailable [phone] Abdirashid Lopez MD Unavailable [phone] Darshan Whyte Unavailable Unavailable Encounter Details Date Type Department Care Team (Late st Contact Info) Description 05/12/2014 [facility] Medical Advice [address] [address] [place] [address] [place] [address] Social History Tobacco Use Types Packs/Day Years Used Date Smoking Tobacco: Never Smokeless Tobacco: Never Alcohol Use Standard Drinks/Week Comments Yes 3.3 (1 standard drink = 0.6 oz p ure alcohol) Sex and Gender Information Value Date Recorded Sex Assigned at Male 06/25/2019 7:25 AM CDT 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 Gender Identity Male 06/25/2019 7:25 AM CDT Sexual Orientation Straight 06/25/2019 7: 25 AM CDT Occupation Industry Job Start Date Job End Date Not on file Not on file Not on file Not on file documented as of this encounter Plan of Treatment Not on file documented as of this encounter Visit Diagnoses Not on filedocumented in this encounter Care Teams Awnings Mechanic Relationship Specialty Start Date End Date Solitario Trevino MD [address] [place] [address] PCP - General Internal Medicine 04/14/13 05/08/15 Abdirashid Lopez MD [address] [place] [address] PCP - General Family Practice 05/09/15 07/07/22 [place] [address] [place] [address] PCP - Assigned PCP 05/08/14 11/10/18 [place] [address] [place] [address] Assigned PCP 05/08/14 05/24/22 Darshan Whyte Personal Advocate & Liaison (PAL) Family Practice 06/22/20 07/02/20 documented as of this encounter
--- OUTSIDE RECORDS SUMMARY | 2024-10-04 05:40 | XMS_ITS | Referral Summary ---
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
--- OUTSIDE RECORDS SUMMARY | 2024-10-04 05:40 | XMS_ITS | Encounter Summary ---
Author Organization [facility] Address [address] [place] [address] Care Team Providers Care Chef German Name Role Phone Solitario Trevino MD Primary Care Provider Abdirashid Lopez MD Primary Care Provider + [phone] Abdirashid Lopez MD Unavailable [phone] Abdirashid Lopez MD Unavailable [phone] Darshan Whyte Unavailable Unavailable Encounter Details Date Type Department Care Team (Late st Contact Info) Description 07/27/2013 MyC Medical Advice [facility] [address] [facility] [address] [place] [phone] Solitario Trevino MD [address] [facility] [address] [place] [address] Social History Tobacco Use Types Packs/Day Years Used Date Smoking Tobacco: Never Smokeless Tobacco: Never Alcohol Use Standard Drinks/Week Comments Yes 0 (1 standard drink = 0.6 oz pur e alcohol) Occasionally Sex and Gender Information Value Date Recorded Sex Assigned at Male 06/25/2019 7:25 AM CDT 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 Gender Identity Male 06/25/2019 7:25 AM CDT Sexual Orientation Straight 06/25/2019 7: 25 AM CDT documented as of this encounter Plan of Treatment Not on file documented as of this encounter Visit Diagnoses Not on filedocumented in this encounter Care Teams Chef German Relationship Specialty Start Date End Date Solitario Trevino MD [address] [place] [address] PCP - General Internal Medicine 04/14/13 05/08/15 Abdirashid Lopez MD [address] [place] [address] PCP - General Family Practice 05/09/15 07/07/22 [place] [address] [place] [address] PCP - Assigned PCP 05/08/14 11/10/18 [place] [address] [place] [address] Assigned PCP 05/08/14 05/24/22 Darshan Whyte Personal Advocate & Liaison (PAL) Family Practice 06/22/20 07/02/20 documented as of this encounter
--- OUTSIDE RECORDS SUMMARY | 2024-10-04 05:40 | XMS_ITS | Encounter Summary ---
Author Organization [facility] Address [address] [place] [address] Care Team Providers Care Tester Food Products Name Role Phone Abdirashid Lopez MD Primary Care Provider [phone] Abdirashid Lopez MD Unavailable [phone] Encounter Details Date Type Department Care Team (Late st Contact Info) Description 06/27/2021 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 Gender Identity Male 06/25/2019 7:25 AM CDT Sexual Orientation Straight 06/25/2019 7: 25 AM CDT Occupation Industry Job Start Date Job End Date Not on file Not on file Not on file Not on file documented as of this encounter Plan of Treatment Not on file documented as of this encounter Visit Diagnoses Not on filedocumented in this encounter Care Teams Tester Food Products Relationship Specialty Start Date End Date Abdirashid Lopez MD PCP - General Family Practice 05/09/15 07/07/22 [place] [address] [place] [address] Assigned PCP 05/08/14 05/24/22 documented as of this encounter
--- OUTSIDE RECORDS SUMMARY | 2024-10-04 05:40 | XMS_ITS | Data Portability ---
Author Organization [place] [facility], [facility] Address [address] [place] [address] Care Team Providers Care Third Shift Lieutenant Name Role Phone JESSICAINA [facility] Referring Provider Assessment No assessment recorded. Plan of Treatment Reminders Order Date Submit Date Provider Last Modified By Organization Details Last Modified Time Details Appointments None recorded. Lab None recorded. Referral None recorded. Procedures None recorded. Surgeries None recorded. Imaging MRI, scrotum, w/wo contrast - Needs to be scheduled at the [facility] On the right lateral testicle, there is a cord-like structure that has mild tenderness and seems to tract along the lateral aspect of the testicle, patient has had two ultrasounds at [facility] in August 2021 so please compare these to the MRI/ please call patient schedule 2021 022 [facility], [address], [place], [address], 16:01:23 Medication Orders None recorded. Patient TargetsNo targets recorded. Patient Instructions Encounter Date Encounter Id Patient Instructions Last Modified By Organization Details Last Modified Time 12/20/2021 [id number] Right testicular mass: On the right lateral testicle, there is a cord-like structure that has mild tenderness and seems to tract along the lateral aspect of the testicle. I'm not certain what this is but I do believe it's what's being described on the prior ultrasounds. Patient states it's been stable since August 2021. I recommend getting an MRI of the testicle for further evaluation and especially before considering any surgical exploration. I do not believe this is a testicular cancer. Not available 12/20/2021 10:29:29 Reason for Referral None Reported. Results Created Date Observation Date Name Description Value Unit Range Abnormal Flag Note LastModifiedBy Organization Detail LastModifiedTime 12/14/19 22 09/04/2021 US, scrot um No observ ation record ed. Not Available 2021 11:05:21 12/14/19 22 08/17/2021 US, scrot um No observ ation record ed. Not Available 2021 11:05:22 01/22/20 22 01/14/2022 MRI, scrot um, w/wo contr ast No observ ation record ed. [email or web address] [facility] [address], [place], [address], 01/22/2022 10:43:27 Result Notes None recorded. Problems Name Problem SNOMED Code Status Onset Date Resolution Date Notes Provider Name and Address Organization Details Recorded Time Pain in testicle 71926391 Active 022 Darell Romo MD [address] [place] [address], [phone], [facility] 10:26:44 Testicular mass 50180060 Active 022 Darell Romo MD [address] [place] [address], [phone], [facility] 10:27:16 Problem Notes None recorded. Procedures Surgical History Date Name Laterality Status Provider Name and Address Organization Details Recorded Time 12/08/19 17 Diagnostic colonoscopy completed Not Available Health Note 12/16/2021 12:50:33 Excision epiphyseal bar completed Not Available Health Note 12/16/2021 12:50:33 Hernia repair w/mesh completed Not Available Health Note 12/16/2021 12:50:33 Removal of sperm duct(s) completed Not Available Health Note 12/16/2021 12:50:33 Imaging Results Imaging Date Name Status LastModified by Organiz ation Details LastModified Time 09/04/2021 US, scrotum completed Information n ot available 12/13/2021 11:05:21 08/17/2021 US, scrotum completed Information n ot available 12/13/2021 11:05:22 01/14/2022 MRI, scrotum, w/wo contrast completed [email or web address] [facility] [address] , [place], [address], 01/22/2022 10:43:27 Procedure Notes None recorded. Medical Equipment None Reported. Allergies Allergen ID Allergen Name Allergen Category Reaction Reaction Severity Criticality Documentation Date Start Date Code Code System Note Provider Name and Address Organization Details Recorded Time [id number] aspirin medicatio n other Not available Not available 12/16/2021 1191 RxNorm troub le breat john Not Available Not Available Not Available [id number] 29b50 codeine medicatio n other Not available Not available 12/16/2021 2670 RxNorm n/a Not Available Not Available Not Available Medications Name Sig Start Date Stop Date Status Note LastModified by Organization Details LastModified Time ivermectin 3 mg tablet 12/20 completed Not Available Not Available Not Available prednisone 10 mg tablet 12/20 completed Not Available Not Available Not Available metronidazo le 250 mg tablet TAKE 1 TABLET BY MOUTH TWICE DAILY active Not Available Not Available No t Available permethrin 5 % topical cream 12/20 completed Not Available Not Available Not Available omeprazole 40 mg capsule,del ayed release active Not Available Not Available Not Available triamcinolo ne acetonide 0.1 % topical cream 12/20 completed Not Available Not Available Not Available levothyroxi ne 88 mcg tablet active Not Available Not Available Not Available tamsulosin 0.4 mg capsule active Not Available Not Available Not Available cephalexin 500 mg capsule 12/20 completed Not Available Not Available Not Available simvastatin 20 mg tablet 20mg 1/day active Not Available Not Available No t Available triamcinolo ne acetonide 0.1 % topical ointment APPLY TOPICALLY TO THE AFFECTED AREA TWICE DAILY NEEDED 12/20 completed Not Available Not Available Not Available omeprazole 20 mg capsule,del ayed release 20mg 1/day 12/20 completed Not Available Not Available Not Available levofloxaci n 500 mg tablet 12/20 completed Not Available Not Available Not Available methylpredn isolone 4 mg tablets in a dose pack 12/20 completed Not Available Not Available Not Available levothyroxi ne 88mcg 1/day 12/20 completed Not Available Not Available Not Available Vitals Date Recorded Body mass index (BMI) Body height Body weight Provider Name and Address Organization Details Last Updated DateTime 12/20/2021 24.2 kg/m2 167.64 cm 32152.9302 40539 g Not Available Health Note 12/20/2021 09:54:30 Social History Question Answer Notes LastModified by Organizat ion Details LastModified Time Tobacco Smoking Status Never Smoker Not Available Health Note 12/16/2021 12:50:33 What Is Your Level Of Alcohol Consumption? Occasional [email or web address] Information not available 12/16/2021 What Is Your Level Of Caffeine Consumption? Moderate [email or web address] Information not available 12/16/2021 How Much Tobacco Do You Chew? None [email or web address] Information not available 12/16/2021 Do You Or Have You Ever Used E-cigarettes Or Vape? Never Used Electronic Cigarettes [email or web address] Information not available 12/16/2021 What Was The Date Of Your Most Recent Tobacco Screening? 12/20/2021 [email or web address] Information not available 12/16/2021 What Is Your Relationship Status? [email or web address] Information not available 12/16/2021 Do You Or Have You Ever Used Smokeless Tobacco? Never Used Smokeless Tobacco [email or web address] Information not available 12/16/2021 Do You Use Any Illicit Or Recreational Drugs? No [email or web address] Information not available 12/16/2021 Sex: Unknown Functional Status None recorded. Mental Status None recorded. Family History Relationship Description Onset Age of this Age Resolved Age Notes LastModified by Organization Details LastModified Time Mother Family history of cardiac disorder [email or web address] Not available 2021 12:50:31 Father Family history of malignant neoplasm [email or web address] Not available 2021 12:50:31 Medical History Condition Response High Blood Pressure N Kidney Stones N Lung Disease N Depression N GERD/Acid Reflux N Sexually Transmitted Infection N Diabetes N Bleeding Disorder N Cancer N High Cholesterol Y Heart Disease N Immunizations Vaccine Type Date Status Note Provider Nam e and Address Organization Details Recorded Time influenza, unspecified formulation 1 completed Danni raygoza, [facility] 12/20/2021 09:59:58 SARS-COV-2 (COVID-19) vaccine, UNSPECIFIED 1 completed Danni raygoza, [facility] 12/20/2021 09:59:58 Influenza, split virus, trivalent, preservative 1 completed Danni raygoza, [facility] 12/20/2021 09:59:58 Fijian encephalitis SC 8 completed Danni raygoza, [facility] 12/20/2021 09:59:58 Influenza, split virus, quadrivalent, PF 7 completed Danni raygoza, [facility] 12/20/2021 09:59:58 Tdap 4 completed Danni Pierce [facility] 12/20/2021 09:59:58 COVID-19, mRNA, LNP-S, PF, 30 mcg/0.3 mL dose 1 completed Danni raygoza, [facility] 12/20/2021 09:59:58 Influenza, split virus, quadrivalent, PF 4 completed Danni raygoza, [facility] 12/20/2021 09:59:58 Influenza, split virus, trivalent, preservative 7 completed Danni Pierce [facility] 12/20/2021 09:59:58 Influenza, split virus, quadrivalent, PF [address] [facility], [facility] 12/20/2021 09:59:58 Influenza, split virus, quadrivalent, PF 1 completed Danni raygoza, [facility] 12/20/2021 09:59:58 zoster recombinant 9 completed Danni raygoza, [facility] 12/20/2021 09:59:58 Influenza, split virus, quadrivalent, PF 5 completed Danni raygoza, [facility] 12/20/2021 09:59:58 Influenza, split virus, trivalent, preservative 8 completed Danni Pierce null, [facility] 12/20/2021 09:59:58 Influenza, split virus, quadrivalent, PF 6 completed Danni Pierce null, [facility] 12/20/2021 09:59:58 COVID-19, mRNA, LNP-S, PF, 30 mcg/0.3 mL dose 1 completed Danni Pierce null, [facility] 12/20/2021 09:59:58 Fijian encephalitis SC 8 completed Danni Pierce null, [facility] 12/20/2021 09:59:58 Influenza, split virus, quadrivalent, PF 8 completed Danni Pierce null, [facility] 12/20/2021 09:59:58 [facility] 09:59:58 Td (adult), 2 Lf tetanus toxoid, preservative free, adsorbed 4 completed Danni Pierce null, [facility] 12/20/2021 09:59:58 typhoid, oral 8 completed Danni raygoza, [facility] 12/20/2021 09:59:58 Influenza, recombinant, quadrivalent, PF 9 [facility] 09:59:58 Influenza, split virus, trivalent, preservative 0 completed Danni Pierce null, [facility] 12/20/2021 09:59:58 COVID-19, mRNA, LNP-S, PF, 30 mcg/0.3 mL dose 1 completed Danni Pierce null, [facility] 12/20/2021 09:59:58 Influenza, split virus, quadrivalent, PF 3 completed Danni raygoza, [facility] 12/20/2021 09:59:58 Novel [id number], all formulations 0 completed Danni Pierce null, [facility] 12/20/2021 09:59:58 Influenza, split virus, trivalent, preservative 2 completed Danni Stan raygoza [facility] 12/20/2021 09:59:58 Influenza, split virus, quadrivalent, PF 0 completed Danni Stan idalmis, [facility] 12/20/2021 09:59:58 Past Encounters Encounter ID Performer Location Encounter Start Date Encounter Closed Date Diagnosis/Indication Diagnosis SNOMED-CT Code Diagnosis ICD10 Code Diagnosis Note [id number] Darell Romo MD [address] [place] [address] 12/20/2021 09:52:45 12/20/2021 10:31:01 Testicular mass 70664782 N50.89 Health Concerns Section Related Observation LastModified by Organization Detai ls LastModified Time None Recorded Concern Status LastModified by Organization Details LastModified Time None Recorded Advance Directives Directive None Recorded Payers Encounter Date Sequence Insurance Name Policy Number Policy Mariano Covered Member ID Mariano Member ID Guarantor Name 12/20/2021 1 [facility] [id number] Satya Anthony [id number] Satya Anthony Notes Date Note Type Note Provider Name and Address Organization Details Recorded Time 12/20/2021 text/html 12/20/21: HLD, hypothyroidism, GERD. Scrotal U/S 08/17/21 ([facility]) = normal testicles, 2.0 x 1.3 x 0.2 cm structure appearing to be epididymal in origin at the right anterior testicle. Scrotal U/S 09/04/21 ([facility]) = no change to hypoechoic and nonvascular lesion as note prior. PSA 06/25/21 = 0.54 ng/mL.I have a hard spot in the right testicle. States that he first noticed it in mid-August 2021. States that it's unchanged since he first noticed it. States that he feels it when bends over. He does have discomfort with it when he moves around in certain position. No dysuria. No gross hematuria. S/p vasectomy in his mid-30s. S/p bilateral inguinal hernia repair (age 14 and 18). Darell Romo MD [address], [place], [address], [facility] 12/20/2021 10:29:40
--- OUTSIDE RECORDS SUMMARY | 2024-10-04 05:40 | XMS_ITS | Clinical Summary ---
Author Organization [facility] Address [place], [place] [address] Care Team Providers Care Craft Superintendent Name Role Phone Mino Capps Primary Care Provider [phone] Melinda Bass PA Unavailable [phone] Allergies Active Allergy Reactions Criticality Noted Date Comments Aspirin, Buffered Anaphylaxis High 04/03/2010 Codeine Other - Describe In Comment Field 04/03/2010 Unsure of reaction, childhood Medications cholecalciferol (VITAMIN D-3) 2,000 unit capsule Take 1 capsule by mouth once daily. 0 04/24/20 11 Active famotidine (Pepcid) 20 mg tablet Take 20 mg by mouth once daily. Active rosuvastatin (CRESTOR) 40 mg tabletIndicatio ns:Hyperlipidem ia LDL goal <130,CAD in [place] artery Take 1 Tablet (40 mg) by mouth at bedtime. 90 Tablet 3 07/05/20 24 Active metroNIDAZOLE (FLAGYL) 250 mg tabletIndicatio ns:Lichen planus Take 1 Tablet (250 mg) by mouth two times daily. 180 Tablet 3 07/05/20 24 Active Additional Information Patient taking differently:250 mg OralQ AM, Reported on 09/24/2024 levothyroxine (SYNTHROID) 100 mcg tabletIndicatio ns:Hypothyroidi sm, unspecified type Take 1 Tablet (100 mcg) by mouth before breakfast. 90 Tablet 3 07/06/20 24 Active tamsulosin 0.4 mg capsuleIndicati ons:BPH with urinary obstruction Take 1 Capsule (0.4 mg) by mouth once daily after a meal. 90 Capsule 3 09/07/20 24 Active omeprazole (PRILOSEC) 20 mg Delayed-Release capsule Take 20 mg by mouth once daily. Active predniSONE (DELTASONE) 20 mg tabletIndicatio ns:Cystitis Take 2 tablets by mouth once daily after breakfast or lunch for 3 days 6 Tablet 09/13/19 25 Active Additional Information Patient not taking.Reported on 09/24/2024 ciprofloxacin (CIPRO) 500 mg tabletIndicatio ns:prostatitis Take 1 Tablet (500 mg) by mouth two times daily before meals. 60 Tablet 09/21/19 25 025 Active glucosamine sulfate (Glucosamine) 500 mg tab Take 500 mg by mouth once daily. Active trimethoprim-hernandez lfamethoxazole 160-800 mg tabIndications: Prostatitis, acute Take 1 Tablet by mouth two times daily. 60 Tablet 09/30/19 25 Active trimethoprim-hernandez lfamethoxazole 160-800 mg tabIndications: Prostatitis, acute Take 1 Tablet by mouth two times daily for 10 days. 20 Tablet 09/07/20 24 025 oxybutynin XL (DITROPAN XL) 10 mg CR tabletIndicatio ns:Cystitis Take 1 Tablet (10 mg) by mouth once daily for 10 days. For bladder calming 10 Tablet 09/13/19 25 025 phenazopyridine (PYRIDIUM) 200 mg tabletIndicatio ns:Cystitis Take 1 Tablet (200 mg) by mouth three times daily after meals for 2 days. For as needed for bladder pain 6 Tablet 09/13/19 25 025 phenazopyridine (PYRIDIUM) 200 mg tabletIndicatio ns:Prostatitis, acute Take 1 Tablet (200 mg) by mouth three times daily after meals for 5 days. 15 Tablet 09/21/19 25 025 trimethoprim-hernandez lfamethoxazole 160-800 mg tabIndications: Prostatitis, acute Take 1 Tablet by mouth two times daily for 3 days. 6 Tablet 09/30/19 25 025 Discontinu ed(*Medica tion adjustment ) Active Problems Problem Noted Date Diagnosed Date Lymphadenopathy 01/28/2024 Struck by horse 06/04/2023 Agatston CAC score, >400 12/31/2022 Family history of ASCVD 12/31/2022 Elevated lipoprotein(a) 12/31/2022 Benign neoplasm of ascending colon 12/10/2022 Benign neoplasm of sigmoid colon 12/10/2022 Testicular mass 12/20/2021 Benign neoplasm of transverse colon 07/29/2017 History of colonic polyps 07/29/2017 Hypothyroidism 05/12/2014 GERD (gastroesophageal reflux disease) 1 Hyperlipidemia LDL goal <70 04/03/2010 Encounters Date Type Department Care Team Description 09/24/2024 12:30 PM BEATER AND PULPER FEEDER Office Visit [address] [address] Melinda Bass PA Consult (N41.0 (ICD-10-CM) - Prostatitis, acute /N48.89 (ICD-10-CM) - Penile pain /) 09/24/2024 Travel 09/21/2024 10:30 AM BEATER AND PULPER FEEDER Ancillary Procedure [address] [address] 09/21/2024 10:00 AM BEATER AND PULPER FEEDER Orders Only [address] [address] [place] [place] [facility] 09/21/2024 8:05 AM BEATER AND PULPER FEEDER Office Visit [address] [address] Mino Capps DO Urinary Problem (X2 weeks - has had a burning with urination and in is prostate - went to UC on 09/13 - since stopping the phenazopyridine has been having pain again ) 09/21/2024 Orders Only [address] [address] Mino Capps, <No scans attached> 09/21/2024 Travel 09/13/2024 10:05 AM BEATER AND PULPER FEEDER Office Visit [facility] [id number] [address] Katarzyna Anaya PA UTI 09/13/2024 Travel 09/07/2024 7:50 AM BEATER AND PULPER FEEDER Office Visit [address] [place] [facility] [place] [address] Arin Tuttle PA UTI 09/07/2024 Travel 09/06/2024 3:45 PM BEATER AND PULPER FEEDER E-Visit [facility] [address] [facility] [place] [address] Emily Le MA Previous Questionnaire Submission 08/12/2024 Telephone [facility] [address] [facility] [address] [place] [address] Amara Chowdhury, VIANEY Refill Request (Rosuvastatin) 08/03/2024 3:30 PM BEATER AND PULPER FEEDER Orders Only [facility] [place] [facility] [place] [address] [facility] [place] [facility] 08/03/2024 Travel 07/28/2024 8:10 AM BEATER AND PULPER FEEDER Procedure Only [facility] [address] [place] [place] [address] Hilario Joel MD Procedure (Ultrasound guided injection lef... 07/28/2024 Travel 07/05/2024 8:05 AM CDT Office Visit [facility] [address] [place] [address] Mino Capps, Physical (64 year old ) 07/05/2024 Travel from Last 3 Months Immunizations Name Administration Dates Next Due COVID-19 VACCINE SPIKEVAX (M ODERNA 50MCG/0.5ML) 12YO+ PFS 07/05/2024,08/18/2023 COVID-19 vaccine (Pfizer-Bio NTech 30mcg/0.3mL) PF, MDV 08/17/2021 Covid-19 Vaccine (Unspecified) 08/17/2021 Hepatitis A (Adult) 04/19/2002,10/19/2001 Hepatitis A, Unspecified 04/19/2002,10/19/2001 Hepatitis B (Adult) 04/19/2002,10/19/2001,2001 INFLUENZA, IIV3 PF (AGE >= 6 MO) 07/05/2024 Influenza A (H1N1), Inactivated 10/04/2009 Influenza RIV4 (Age 18+ Year s) PRESERV FREE 06/10/2019 Influenza, IIV3 (Age >=3 years) 06/18/20 12,06/20/2011,06/21/2010,2007,06/15/2007 Influenza, IIV4 07/03/2023, 2,06/25/2021,2019,06/08/2020,06/10/2018,05/30/2017,1 ,06/14/2015,06/08/2014, 013 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,03/02/2008,02/06 Israeli Encephalitis Sc 03/09/2008,02/23/2008 Td (Age >=7 Years) 08/21/2004 Tdap 06/04/2023,04/29/2014,08/21/2004 Typhoid (injectable) 10/19/2001 Typhoid (oral) 02/23/2008 Yellow Fever 10/19/2001 Zoster (Shingrix-RZV, recombinant) 09/17/2019, Family History Medical History Relation Name Comments Heart attack Brother triple bipass Other Father aortic stenosis Hyperlipidemia Maternal Grandfather Cancer-colon Maternal Uncle Hyperlipidemia Paternal Grandfather Other Paternal Grandmother aortic stenosis Cancer-colon Paternal Uncle Relation Name Status Comments Brother Alive Father Maternal Grandfather Maternal Uncle Paternal Grandfather Paternal Grandmother Paternal Uncle Social History Tobacco Use Types Packs/Day Years Used Date Smoking Tobacco: Never Passive Smoke Exposure: Past Smokeless Tobacco: Former Chew Quit: 01/06/2006 Tobacco Cessation:Counseling Given: Yes Alcohol Use Standard Drinks/Week Comments Yes 0 (1 standard drink = 0.6 oz pur e alcohol) 4 drinks per week PHQ-2 Answer Date Recorded PHQ-2 TOTAL SCORE 0 07/05/2024 Social Connections Answer Date Recorded Do you often feel lonely or isolated from those around you? 0 07/05/2024 Financial Resource Strain Answer Date R ecorded Difficulty of Paying Living Expenses 3 07/03/2023 Difficulty of Paying Living Expenses Not on file 07/03/2023 Food Insecurity Answer Date Recorded Do you worry your food will run out before you are able to buy more? 1 07/05/2024 Transportation Needs Answer Date Record ed Does lack of transportation keep you from medica l appointments? 1 07/05/2024 Does lack of transportation keep you from work, meetings or getting things that you need? 1 07/05/2024 Housing Stability Answer Date Recorded What is your housing situation today? 1 07/05/2024 Utilities Answer Date Recorded Do you have trouble paying f or utilities (for example, heat, electricity, water, phone)? 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 Not on file No t on file Obstetrics History Last Filed Vital Signs Vital Sign Reading Time Taken Comments Blood Pressure 128/60 09/24/2024 12:13 PM BEATER AND PULPER FEEDER Pulse 60 09/24/2024 12:13 PM BEATER AND PULPER FEEDER Temperature 36.3 C (97.3 F) 09/13/2024 10:43 AM BEATER AND PULPER FEEDER Respiratory Rate 12 09/13/2024 10:4 3 AM BEATER AND PULPER FEEDER Oxygen Saturation 99% 09/21/2024 7:53 AM BEATER AND PULPER FEEDER Inhaled Oxygen Concentration - - Weight 66.1 kg (145 lb 11.2 oz) 025 12:13 PM BEATER AND PULPER FEEDER Height 167.5 cm (5' 5.95) 07/05/2024 8:05 AM CD T Body Mass Index 23.56 07/05/2024 8:05 AM CDT Plan of Treatment Upcoming Encounters Date Type Department Care Team (Late st Contact Info) Description 12/15/2024 8:30 AM CDT Ancillary Procedure [facility] [address] [place] [address] 12/16/2024 11:00 AM CDT Telemedicine [facility] [address] [place] [address] Sahil Ferrer MD [address] [place] [address] Health Maintenance Due Date Last Done Comments HIV for age 15-65 1977 Pneumococcal series for age 50+ (1 of 2 - PCV) 1981 RSV vaccine for adults or (1 - Risk 60-74 years 1-dose series) 2022 BMI (ht and wt on same day) for age 18+ 07/05/2025 07/05/2024, 08/26/2023, 07/03/2023, Additional history exists Depression screening for age 12+ 07/05/2025 07/05/2024, 07/03/2023, 07/02/2022, Additional history exists Lipids for age 45-75 07/05/2029 07/05/2024, 05/26/2023, 12/24/2022, Additional history exists Colonoscopy through age 75 12/06/203212/06, 07/25/2017, 05/27/2012 Tetanus booster 06/04/2033 06/04/2023, 04/09, 08/21/2004, Additional history exists Zoster (shingles) series for age 50+ Completed 09/17/2019, 06/28/2019 Hepatitis C screening for ag e 18-79 Completed 04/22/2021 (Completed outsid e of Tello) Tdap Completed 06/04/2023, 04/09, 08/21/2004 COVID-19 vaccine series Completed 07/05/20, 08/18/2023, 08/17/2021, Additional history exists Influenza for age 50-64 Completed 07/05/20, 07/03/2023, 07/02/2022, Additional history exists Procedures Procedure Name Priority Date/Time Associated Diagnosis Comments VT OLIVERIO POST-VOIDING RESIDUAL URINE&/BLADDER CAP Routine 09/24/2024 12:00 AM BEATER AND PULPER FEEDER Prostatitis, acute CT ABDOMEN PELVIS UROGRAM WWO JASWANT 09/21/2024 11:26 AM BEATER AND PULPER FEEDER Prostatitis, acute Penile pain CREATININE,ISTAT Routine 09/21/2024 10:2 3 AM BEATER AND PULPER FEEDER Observation or evaluation for suspected condition VT BLOOD COUNT COMPLETE AUTO&AUTO DIFRNTL WBC Routine 09/13/2024 12:28 PM BEATER AND PULPER FEEDER Dysuria PSA TOTAL Routine 09/13/2024 12:27 PM BEATER AND PULPER FEEDER Dysuria URINE CULTURE Routine 09/13/2024 10:52 AM BEATER AND PULPER FEEDER Dysuria UA W/ SEDIMENT EXAM REFLEXED PER CRITERIA STAT 09/13/2024 10:52 AM BEATER AND PULPER FEEDER Dysuria URINALYSIS MACROSCOPIC - [facility] ONLY POC DIP ([facility]) Routine 09/07/2024 7:55 AM BEATER AND PULPER FEEDER Lower urinary tract symptoms (LUTS) URINE CULTURE Routine 09/07/2024 7:54 AM BEATER AND PULPER FEEDER Lower urinary tract symptoms (LUTS) URINALYSIS MICROSCOPIC Routine 09/07/2024 7:54 AM BEATER AND PULPER FEEDER Lower urinary tract symptoms (LUTS) TSH Routine 08/03/2024 3:15 PM BEATER AND PULPER FEEDER Hypothyroidism, unspecified type BEDSIDE US STUDY ARCHIVE Routine 07/28/2024 2:17 PM BEATER AND PULPER FEEDER Primary osteoarthritis of left hip TSH Routine 07/05/2024 9:11 AM CDT Hypothyroidism, unspecified type BASIC METABOLIC PANEL Routine 07/05/2024 9:11 AM CDT Annual physical exam PSA (TOTAL) ([facility]) Routine 07/05/2024 9 :11 AM CDT BPH with urinary obstruction LIPID PANEL Routine 07/05/2024 9:11 AM CDT CAD in [place] artery ALT (SGPT) Routine 07/05/2024 9:09 AM CDT Lichen planus SCAN-COLONOSCOPY 12/06/2022 10:0 0 AM CDT from Last 3 Months or Most Recently Relevant to Health Maintenance Results * VT OLIVERIO POST-VOIDING RESIDUAL URINE&/BLADDER CAP (09/24/2024 12:00 AM BEATER AND PULPER FEEDER) us Melinda PENA PB - URINARY SYSTEM SERVI CLARA Final Result * CT ABDOMEN PELVIS UROGRAM WWO (09/21/2024 11:26 AM BEATER AND PULPER FEEDER) Anatomical Region Laterality Modality Abdomen, Pelvis, KIDNEYS, BLADDER Computed Tomography 09/21/2024 1:18 PM BEATER AND PULPER FEEDER Impressions 09/21/2024 1:18 PM BEATER AND PULPER FEEDER 1. Bilateral renal cysts and too small to accurately characterize renal low- density lesions, statistically likely tiny cysts. 2. Left nephrolithiasis. 3. Prominent seminal vesicles, nonspecific. These changes may be seen with vesiculitis associated with prostatitis or urinary tract infection as well as other etiologies. Urology consultation is recommended. Please note that all CT scans at this facility use dose modulation, iterative reconstruction, and/or weight-based dosing when appropriate to reduce radiation dose to as low as reasonably achievable. Dictated by Aneesh Castaneda MD @ 09/21/2024 1:18:20 PM (Electronically Signed) Narrative 09/21/2024 1:18 PM BEATER AND PULPER FEEDER For Patients: As a result of the Cures Act, medical imaging exams and procedure reports are released immediately into your electronic medical record. You may view this report before your referring provider. If you have questions, please contact your health care provider. INDICATION: Prostatitis, acute. Penile pain. Dysuria, nonresponsive to medication. TECHNIQUE: CT abdomen and pelvis without and with intravenous contrast. 100 cc Omnipaque 350 was administered intravenously. COMPARISON: CT scan of the abdomen and pelvis 03/08/2021. FINDINGS: Lower chest: Clear lung bases. Liver: Unremarkable. Normal in size and attenuation. No suspicious masses. Gallbladder and bile ducts: Unremarkable. No stones or inflammation. No biliary dilatation. Pancreas: Unremarkable. No mass or inflammation. Spleen: Unremarkable. Normal in size. No masses. Adrenal glands: Unremarkable. No nodules. Kidneys, ureters and urinary bladder: Bilateral renal cysts and too small to accurately characterize renal low-density lesions, statistically likely tiny cysts. 5 millimeter nonobstructing stone in the interpolar left kidney. Unremarkable ureters. No hydronephrosis.No abnormality identified within the partially opacified urinary bladder. Reproductive: Unremarkable prostate. No prostatomegaly. Prominent symmetric seminal vesicles. GI tract: Unremarkable. Normal in caliber. No sign of mass or inflammation. No appendicitis. Vasculature: Abdominal aorta is normal in caliber. Mesenteric arteries are patent. Lymph nodes: No lymphadenopathy. Peritoneum: Unremarkable. No sign of mass or infiltration. No free air or significant free fluid. Pelvis: Unremarkable. Abdominal Wall. Unremarkable. No abdominal wall mass or hernia. Bones: Unremarkable for age. No fracture or suspicious bone lesion. Procedure Note Aneesh Castaneda MD - 09/21/2024 For Patients: As a result of the Cures Act, medical imagingexams and procedure reports are released immediately into your electronicmedical record. You may view this report before your referring provider.If you have questions, please contact your health care provider. INDICATION: Prostatitis, acute. Penile pain. Dysuria, nonresponsive to medication. TECHNIQUE: CT abdomen and pelvis without and with intravenous contrast. 100 ccOmnipaque 350 was administered intravenously. COMPARISON: CT scan of the abdomen and pelvis 03/08/2021. FINDINGS: Lower chest: Clear lung bases. Liver: Unremarkable. Normal in size and attenuation. No suspicious masses. Gallbladder and bile ducts: Unremarkable. No stones or inflammation. Nobiliary dilatation. Pancreas: Unremarkable. No mass or inflammation. Spleen: Unremarkable. Normal in size. No masses. Adrenal glands: Unremarkable. No nodules. Kidneys, ureters and urinary bladder: Bilateral renal cysts and too smallto accurately characterize renal low-density lesions, statistically likelytiny cysts. 5 millimeter nonobstructing stone in the interpolar leftkidney. Unremarkable ureters. No hydronephrosis.No abnormality identifiedwithin the partially opacified urinary bladder. Reproductive: Unremarkable prostate. No prostatomegaly. Prominentsymmetric seminal vesicles. GI tract: Unremarkable. Normal in caliber. No sign of mass orinflammation. No appendicitis. Vasculature: Abdominal aorta is normal in caliber. Mesenteric arteries arepatent. Lymph nodes: No lymphadenopathy. Peritoneum: Unremarkable. No sign of mass or infiltration. No free air orsignificant free fluid. Pelvis: Unremarkable. Abdominal Wall. Unremarkable. No abdominal wall mass or hernia. Bones: Unremarkable for age. No fracture or suspicious bone lesion. IMPRESSION: 1. Bilateral renal cysts and too small to accurately characterize renallow- density lesions, statistically likely tiny cysts. 2. Left nephrolithiasis. 3. Prominent seminal vesicles, nonspecific. These changes may be seen withvesiculitis associated with prostatitis or urinary tract infection as wellas other etiologies. Urology consultation is recommended. Please note that all CT scans at this facility use dose modulation,iterative reconstruction, and/or weight-based dosing when appropriate toreduce radiation dose to as low as reasonably achievable. Dictated by Aneesh Castaneda MD @ 09/21/2024 1:18:20 PM (Electronically Signed) Adei Jefry DO CT Final Result * POCT Creatinine (09/21/2024 10:23 AM BEATER AND PULPER FEEDER) Pathologist [facility] POCT,CREATININ E, ISTAT 1.0 0.6 - 1.3 mg/dL [facility] Blood BLOOD SPECIMEN / Unknown 09/21/2024 10:23 AM BEATER AND PULPER FEEDER 09/21/2024 10:23 AM BEATER AND PULPER FEEDER Adei Jefry DO CHEMISTRY Final Result [facility] [address] [place] [address], [facility] [address] [place] [address] * CBC & DIFF [[id number]] (09/13/2024 12:28 PM BEATER AND PULPER FEEDER) Pathologist [facility] WHITE BLOOD CELL COUNT 6.1 3.8 - 10.8 Thousand/u L [facility] RED BLOOD CELL COUNT 4.66 4.20 - 5.80 Million/uL [facility] HEMOGLOBIN 14.2 13.2 - 17.1 g/dL [facility] HEMATOCRIT 42.9 38.5 - 50.0 % [facility] MCV 92.1 80.0 - 100.0 fL [facility] MCH 30.5 27.0 - 33.0 pg [facility] MCHC 33.1 32.0 - 36.0 g/dL [facility] Comment: For adults, a slight decrease in the calculated MCHC value (in the range of 30 to 32 g/dL) is most likely not clinically significant; however, it should be interpreted with caution in correlation with other red cell parameters and the patient's clinical condition. RDW 12.4 11.0 - 15.0 % [facility] PLATELET COUNT 247 140 - 400 Thousand/u L [facility] MPV 9.0 7.5 - 12.5 fL [facility] ABSOLUTE NEUTROPHILS 4,227 1,500 - 7,800 cells/uL [facility] ABSOLUTE LYMPHOCYTES 1,165 850 - 3,900 cells/uL [facility] ABSOLUTE MONOCYTES 470 200 - 950 cells/uL [facility]) ABSOLUTE EOSINOPHILS 177 15 - 500 cells/uL [facility]) ABSOLUTE BASOPHILS 61 0 - 200 cells/uL [facility] NEUTROPHILS 69.3 % [facility] LYMPHOCYTES 19.1 % [facility] MONOCYTES 7.7 % [facility] EOSINOPHILS 2.9 % [facility] BASOPHILS 1.0 % [facility] Blood BLOOD SPECIMEN / Unknown 09/13/2024 12:28 PM BEATER AND PULPER FEEDER 09/13/2024 12:29 PM BEATER AND PULPER FEEDER Narrative [facility] - 09/13/2024 1:17 PM BEATER AND PULPER FEEDER SPLIT 09/13/2024 FROM [id number] us Katarzyna PENA HEMATOLOGY Final Resu lt [facility] [address] [place] [address], [facility]) [address] [place] [address] * PSA TOTAL (09/13/2024 12:27 PM BEATER AND PULPER FEEDER) PSA, TOTAL 0.60 < OR = 4.00 ng/mL [facility] marlene Diallo Comment: The total PSA value from this assay system is standardized against the WHO standard. The test result will be approximately 20% lower when compared to the equimolar-standardized total PSA (Biju Helper). Comparison of serial PSA results should be interpreted with this fact in mind. This test was performed using the Siemens chemiluminescent method. Values obtained from different assay methods cannot be used interchangeably. PSA levels, regardless of value, should not be interpreted as absolute evidence of the presence or absence of disease. Blood BLOOD SPECIMEN / Unknown 09/13/2024 12:27 PM BEATER AND PULPER FEEDER 09/13/2024 12:28 PM BEATER AND PULPER FEEDER Narrative [facility] - 09/14/2024 5:38 AM BEATER AND PULPER FEEDER MULTIPLE TESTING PRIORITIES; ROUTINE TESTING TO FOLLOW. Katarzyna PENA CHEMISTRY Final Resu lt 2sms [facility] [address] [place] [address], [facility] [address] [place] [id number] * URINE CULTURE [[id number]] (09/13/2024 10:52 AM BEATER AND PULPER FEEDER) Only the most recent of2 resultswithin the time period is included. CULTURE No growth (<1,000 CFU/mL) 09/14/2024 1:42 PM BEATER AND PULPER FEEDER [facility] Urine URINE SPECIMEN / Unknown Non-Blood / Unknown 09/13/2024 10:52 AM BEATER AND PULPER FEEDER 09/13/2024 10:52 AM BEATER AND PULPER FEEDER Katarzyna PENA MICROBIOLOGY Final Resu lt [facility] [address] [place] [address], * UA W/ SEDIMENT EXAM REFLEXED PER CRITERIA [[id number]] (09/13/2024 10:52 AM BEATER AND PULPER FEEDER) COLOR YELLOW YELLOW [facility]) APPEARANCE CLEAR CLEAR [facility] SPECIFIC GRAVITY 1.020 1.001 - 1.035 [facility] PH 5.5 5.0 - 8.0 [facility] GLUCOSE NEGATIVE NEGATIVE [facility]) BILIRUBIN NEGATIVE NEGATIVE [facility]) KETONES NEGATIVE NEGATIVE [facility]) OCCULT BLOOD NEGATIVE NEGATIVE [facility]) PROTEIN NEGATIVE NEGATIVE [facility]) NITRITE NEGATIVE NEGATIVE [facility]) LEUKOCYTE ESTERASE NEGATIVE NEGATIVE [facility]) Urine URINE SPECIMEN / Unknown 09/13/2024 10:52 AM BEATER AND PULPER FEEDER 09/13/2024 10:53 AM BEATER AND PULPER FEEDER Katarzyna Anaya PA URINE Final Resu lt [facility] [address] [place] [address], [facility]) [address] [place] [address] * POCT Urinalysis Dipstick Only (09/07/2024 7:55 AM BEATER AND PULPER FEEDER) PH 7.0 5.0 - 8.0 [facility] SPECIFIC GRAVITY 1.020 1.001 - 1.035 [facility] GLUCOSE NEGATIVE NEGATIVE [facility] BILIRUBIN NEGATIVE NEGATIVE [facility] KETONES NEGATIVE NEGATIVE [facility] Clinic OCCULT BLOOD NEGATIVE NEGATIVE [facility] PROTEIN NEGATIVE NEGATIVE [facility] NITRITE NEGATIVE NEGATIVE [facility] LEUKOCYTE ESTERASE NEGATIVE NEGATIVE [facility] Urine URINE SPECIMEN / Unknown 09/07/2024 7:55 AM BEATER AND PULPER FEEDER 09/07/2024 7:55 AM BEATER AND PULPER FEEDER Arin PENA URINE Final Result Performing Organization Address City/[facility]/ZIP Co de Phone Number [facility] [address] [place] [address], [facility] [address] [place] [address] * URINALYSIS MICROSCOPIC (09/07/2024 7:54 AM BEATER AND PULPER FEEDER) RBC 0-2 0-2, None Seen /HPF 09/07/2024 2:07 PM BEATER AND PULPER FEEDER [facility] WBC 0-2 0-2, 3-5, None Seen /HPF 09/07/2024 2:07 PM BEATER AND PULPER FEEDER [facility] BACTERIA None Seen None Seen, Rare, Few Bacteria/ HPF 09/07/2024 2:07 PM BEATER AND PULPER FEEDER [facility] EPITHELIAL CELLS None Seen None Seen, Few Epi/HPF 09/07/2024 2:07 PM BEATER AND PULPER FEEDER [facility] HYALINE CASTS 0-2 0-2, 3-5 /LPF 09/07/2024 2:07 PM BEATER AND PULPER FEEDER [facility] Urine URINE SPECIMEN / Unknown Non-Blood / Unknown 09/07/2024 7:54 AM BEATER AND PULPER FEEDER 09/07/2024 7:54 AM BEATER AND PULPER FEEDER us Arin PENA URINE Final Result [facility] [address] [place] [address], [place] * TSH (08/03/2024 3:15 PM BEATER AND PULPER FEEDER) Only the most recent of2 resultswithin the time period is included. TSH 0.71 0.40 - 4.50 mIU/L [facility] Blood BLOOD SPECIMEN / Unknown 08/03/2024 3:15 PM BEATER AND PULPER FEEDER 08/03/2024 3:16 PM BEATER AND PULPER FEEDER Mino Capps DO CHEMISTRY Final Result [facility] [address] [place] [address], [place] [phone] [facility] [address] [place] [address] * BEDSIDE US STUDY ARCHIVE (07/28/2024 2:17 PM BEATER AND PULPER FEEDER) Jerome Lange Lilli Reynaldo - 07/28/2024 2:17 PM BEATER AND PULPER FEEDER The patient was seen for ultrasound guided injection by Dr. Hilario Joel. Ultrasound was not used for diagnostic purposes, but to guide the needle placement and document the position of the injection. See patient's EPIC encounter for the detail of the procedure; see ABBI for saved images of the injection. Hilario Joel MD PROCEDURE ORD Final Resu lt * PSA (TOTAL) ([facility]) (07/05/2024 9:11 AM CDT) PSA, TOTAL 0.47 < OR = 4.00 ng/mL [facility] Comment: The total PSA value from this assay system is standardized against the WHO standard. The test result will be approximately 20% lower when compared to the equimolar-standardized total PSA (Biju Helper). Comparison of serial PSA results should be interpreted with this fact in mind. This test was performed using the Siemens chemiluminescent method. Values obtained from different assay methods cannot be used interchangeably. PSA levels, regardless of value, should not be interpreted as absolute evidence of the presence or absence of disease. Blood BLOOD SPECIMEN / Unknown 07/05/2024 9:11 AM CDT 07/05/2024 9:12 AM CDT Mino Capps DO SEND OUTS Final Result Performing Organization Address City/[facility]/ZIP Co de Phone Number [facility] [address] [place] [address], [place] [phone] [facility] [address] [place] [address] * (ABNORMAL) LIPID PANEL (07/05/2024 9:11 AM CDT) [facility] Signature CHOLESTEROL, TOTAL 155 <200 mg/dL [facility] HDL CHOLESTEROL 49 > OR = 40 mg/dL [facility] TRIGLYCERIDES 167(H) <150 mg/dL [facility] LDL-CHOLESTEROL 79 mg/dL (calc) [facility] Comment: Reference range: <100 Desirable range <100 mg/dL for primary prevention; <70 mg/dL for patients with CHD or diabetic patients with > or = 2 CHD risk factors. LDL-C is now calculated using the Jarad-Dae calculation, which is a validated novel method providing better accuracy than the Friedewald equation in the estimation of LDL-C. Jarad SS et al. FELICE. 2013;310(19): 2951-8297 (http://education.Bookeen/faq/CDN686) CHOL/HDLC RATIO 3.2 <5.0 (calc) [facility] NON HDL CHOLESTEROL 106 <130 mg/dL (calc) [facility] Comment: For patients with diabetes plus 1 major ASCVD risk factor, treating to a non-HDL-C goal of <100 mg/dL (LDL-C of <70 mg/dL) is considered a therapeutic option. Blood BLOOD SPECIMEN / Unknown 07/05/2024 9:11 AM CDT 07/05/2024 9:12 AM CDT Mino Capps DO CHEMISTRY Final Result Performing Organization Address City/[facility]/ZIP Co de Phone Number [facility] [address] [place] [address], [place] [phone] [facility] [address] [place] [address] * (ABNORMAL) BASIC METABOLIC PANEL (07/05/2024 9:11 AM CDT) GLUCOSE 96 65 - 99 mg/dL [facility] Comment: Fasting reference interval UREA NITROGEN (BUN) 18 7 - 25 mg/dL [facility] CREATININE 1.01 0.70 - 1.35 mg/dL [facility] EGFR 84 > OR = 60 mL/min/1. 73m2 [facility] BUN/CREATININE RATIO SEE NOTE: 6 - 22 (calc) [facility] Comment: Not Reported: BUN and Creatinine are within reference range. SODIUM 139 135 - 146 mmol/L [facility] POTASSIUM 4.6 3.5 - 5.3 mmol/L [facility] CHLORIDE 102 98 - 110 mmol/L [facility] CARBON DIOXIDE 31 20 - 32 mmol/L [facility] ELECTROLYTE BALANCE 6(L) 7 - 17 mmol/L (calc) [facility] CALCIUM 10.2 8.6 - 10.3 mg/dL [facility] Blood BLOOD SPECIMEN / Unknown 07/05/2024 9:11 AM CDT 07/05/2024 9:12 AM CDT us Mino Capps DO CHEMISTRY Final Result [facility] [address] [place] [address], [facility] [address] [place] [address] * ALT (SGPT) (07/05/2024 9:09 AM CDT) Pathologist [facility] ALT 43 9 - 46 U/L [facility] Blood BLOOD SPECIMEN / Unknown 07/05/2024 9:09 AM CDT 07/05/2024 9:10 AM CDT us Mino Capps DO CHEMISTRY Final Result [facility] [address] [facility] [place] [address], [place] [phone] [facility] [address] [place] [address] * SCAN-COLONOSCOPY (12/06/2022 10:00 AM CDT) Narrative Procedure Note Jacky Garvin MD - 12/06/2022 8:51 AM CDT [facility] [address], [address], [place] [address] Patient Name: Satya Anthony Gender: Male Exam Date: 12/06/2022 Visit Number: [id number] Age: 62 Years Date of : 1960 Attending MD: Jacky Garvin MD Medical Record#: [id number] Procedure: Colonoscopy Indications: Previous adenomatous polyp(s) Referring MD: Referral Self Primary MD: Mino Capps DO Medications: Admitting Medications: 0.9% Normal Saline at [facility] Intra Procedure Medications: Patient received monitored anesthesia care. Complications: No immediate complications Procedure: An examination of the heart and lungs was performed and found to be withinacceptable limits. . The patient was therefore deemed a reasonablecandidate for endoscopy and sedation. The risks and benefits of the procedure were explained to the patient.After obtaining informed consent, the patient received monitoredanesthesia care and I passed the scope without difficulty via the rectum to the cecum. The appendiceal orificeand ic valve were identified. The scope was retroflexed during theexamination The quality of the prep was excellent (Juliocesar/Gat Split). This was a complete examination throughout the entire colon. Findings: Polyp location: ascending colon. Quantity: 1. Size: 2 mm. Polyp shape:sessile. Maneuver: polypectomy was performed with a cold biopsy forceps. Removal: complete. Retrieval: complete. Bleeding: none. Polyp location: sigmoid. Quantity: 1. Size: 2 mm. Polyp shape: sessile. Maneuver: polypectomy was performed with a cold biopsy forceps . Removal: complete. Retrieval: complete. Bleeding: none. Remainder of the exam is normal. Impression: Colorectal polyp detected on colonoscopy Preliminary Plan: The patient and their physician will receive a copy of the pathologyreport as well as pathology-based recommendations for future screening orsurveillance. Recommendation Comments: most likely 5 years given previous SSA. Pathology Results: A: COLON, ASCENDING, POLYP: 1. Sessile serrated adenoma 2. Negative for overt dysplasia 3. Per the colonoscopy report: a. Polyp size: 2 mm b. Resection: Complete c. Retrieval: Complete B: COLON, SIGMOID, POLYP: 1. Sessile serrated adenoma 2. Negative for overt dysplasia 3. Per the colonoscopy report: a. Polyp size: 2 mm b. Resection: Complete c. Retrieval: Complete MICROSCOPIC A: Performed B: Performed Electronically signed by: Jeremias [place] [address] Orders Instruction(s)/Education: Instruction/Education Timeframe Assessment Colon Cancer Prevention K63.5 Colon Cancer Prevention K63.5 Colon Polyps K63.5 Colon Polyps K63.5 Final Plan: Repeat colonoscopy in 5 years. We will attempt to contact you at appropriate intervals via U.S. mail. Wemay not be able to find you or contact you at that time, therefore youshould know that the responsibility for following our recommendation restswith you. If you don't hear from us at the time your procedure is due,please contact our office to schedule an appointment. If your contactinformation should change, please contact our office so that we can updateyour record. _Electronically signed by: Jaiden Solis MD 12/06/2022 cc: Mino Capps DO Jacky Alonso l Result from Last 3 Months or Most Recently Relevant to Health Maintenance Insurance [address] [place] [address] [employer] [place] [employer] [address] [facility] [place] [id number] [address] [facility] [address] Advance Directives * Full Code (Latest Code Status on File) Date Activated Date Inactivated Comments 01/28/2024 8:43 AM 01/28/2024 5:01 PM Question Answer Comments Code Status Discussion: Unable to Assess Preferences, Provider to review later Care Teams Craft Superintendent Relationship Specialty Start Date End Date Mino Capps DO [address] [facility] [place] [address] PCP - General Family Practice 04/11/23 Melinda Bass PA [address] [facility] [place] [address] Physician Alcoholism Worker 09/24/24
--- OUTSIDE RECORDS SUMMARY | 2024-10-04 05:41 | XMS_ITS | Continuity of Care Document ---
Author Organization [facility] Address [address] [address] [place] [address] Phone Care Team Providers Care Applications Support Specialist Name Role Phone Kelsi Buckley CRNA Unavailable [...] oral route 2 times every day - No Longer Active Procedures Procedure Date Colonoscopy Flex; W/bx 1/mx Level Iv-surg Path Gross/micro 23 Colonoscopy Flex; W/remov Les- 17 Level Iv-surg Path Gross/micro 17 Colonoscopy Flex; W/remov Les- 12 Level Iv-surg Path Gross/micro 12 Advance Directives Directive Yes / No Effective Date File Name No Information Encounters Encounter Description Practice Location Reason(s) For Visit Diagnoses Date Provider Providers Copied on Encounter [facility], [address] [address], [place], [place], [id number], [place] tel:[phone] [facility] No Information 3 Marcio Dolan. [address], [id number], [place]. tel:[phone] Referring Provider: Jacky Ma, [address], [address]. tel:[phone] [facility], [address] [address], [place], [place], [id number], [place] tel:[phone] [facility] GI Symptoms or Concerns (chief complaint) Polyp of colonEncounter for screening for malignant neoplasm of colonPersonal history of colonic polypsBenign neoplasm of ascending colonBenign neoplasm of sigmoid colonBenign neoplasm of ascending colon 3 Virgie Rico. [address], [id number], [place]. tel:[phone] Referring Provider: Referral Self, USE FOR SELF REFERRALS. [facility], [address] [address], [place], [place], [id number], [place] tel:[phone] [facility] No Information 3 Jun Quiñonez. [address] [facility] [address], [place], [id number], [place]. tel:[phone] [facility], [address] [address], [place], [place], [id number], [place] tel:[phone] [facility] Colorectal polyp detected on colonoscopyEncou nter for screening for malignant neoplasm of colonBenign neoplasm of transverse colonPersonal history of colonic polyps 7 Jason Man. [address] [facility] [address], [place], [id number], [place]. tel:[phone] Referring Provider: Referral Self, USE FOR SELF REFERRALS. [facility], [address] [address], [place], [place], [id number], tel:[phone] [facility] Colon Cancer ScreeningBenign Neoplasm ColonColon Cancer ScreeningBenign Neoplasm Colon 2 Jase Campbell. [address] [facility] [address], [place], [id number], [place]. tel:[phone] Family History Family Member Type Diagnosis Age [...] Date Status Comments Afluria Qd administered Note: [facility] bi-directional interface ; Source: Other Registry SARS-COV-2 [...] bi-directional interface ; Source: Other Registry Novel [id number], all formulations administered Note: [facility] bi-direct ional interface ; Source: Other Registry Influenza, seasonal, injectable administe red Note: [facility] bi- directional interface ; Source: Other Registry [place] Encephalitis Vaccine [place] administ ered Note: [facility] bi- directional interface ; Source: Other Registry typhoid vaccine, live, oral administered Note: [facility] bi-directional interface ; Source: Other Registry [place] Encephalitis Vaccine [place] administ ered Note: [facility] bi- directional interface ; Source: Other Registry Influenza, seasonal, injectable administe red Note: [facility] bi- directional interface ; Source: Other Registry Payers Payer name Insurance type Covered alliance party ID Authoriza tion(s) [employer] [place] [id number] Social History Type Description Quantity Date Captured [...]
--- OUTSIDE RECORDS SUMMARY | 2024-10-04 05:41 | XMS_ITS | Encounter Summary ---
Author Organization [facility] Address [address] [place] [address]. [place] [address] Care Team Providers Care Mixed Livestock Farmer Name Role Phone Abdirashid Lopez MD Primary Care Provider [phone] Abdirashid Lopez MD Unavailable [phone] Abdirashid Lopez MD Unavailable [phone] Darshan Whyte Unavailable Unavailable Reason for Visit * Reason Onset Date Comments Refill Request 10/25/2015 Encounter Details Date Type Department Care Team (Late st Contact Info) Description 10/25/2015 [facility] [facility] [address] [address] [place] [address] [place] [address] Refill Request Social History Tobacco Use Types Packs/Day Years Used Date Smoking Tobacco: Never Smokeless Tobacco: Never Alcohol Use Standard Drinks/Week Comments Yes 3.3 (1 standard drink = 0.6 oz p ure alcohol) Sex and Gender Information Value Date Recorded Sex Assigned at Male 06/25/2019 7:25 AM CDT 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:39 AM NUTRITION INTERN Gender Identity Male 06/25/2019 7:25 AM CDT Sexual Orientation Straight 06/25/2019 7: 25 AM CDT Occupation Industry Job Start Date Job End Date Not on file Not on file Not on file Not on file documented as of this encounter Plan of Treatment Not on file documented as of this encounter Visit Diagnoses Not on filedocumented in this encounter Care Teams Mixed Livestock Farmer Relationship Specialty Start Date End Date Abdirashid Lopez MD PCP - General Family Practice 05/09/15 07/07/22 [place] [address] [place] [address] PCP - Assigned PCP 05/08/14 11/10/18 [place] [address] [place] [address] Assigned PCP 05/08/14 05/24/22 Darshan Whyte Personal Advocate & Liaison (PAL) [facility] Practice 06/22/20 07/02/20 documented as of this encounter
[2024-10-04 05:46] VITALS: BP 141/80; PULSE 68; RESP 18; TEMP 36.7; O2SAT 97; BMI 24.2
[2024-10-04 06:01] LABS: Appearance Urine Clear (Clear); Bilirubin Urine Negative (Negative); Blood Urine Negative (Negative); Color Urine Yellow (Yellow); Glucose Urine Negative (Negative); Ketones Urine Negative (Negative); Leukocyte Esterase Urine Negative (Negative); Nitrite Urine Positive (Negative); Protein Urine Negative (Negative); Urobilinogen Urine 0.2 (0.2-1.0); pH Urine 6.5 (5.0-8.5)
[2024-10-04 06:08] LABS: Bacteria Urine Few; RBC Urine 0-2 (0-2); Squamous Epithelial Cell Urine Few (None-Few); WBC Urine 0-2 (0-5)
--- NOTE | 2024-10-04 06:08 | ED_ITS ---
HPI - General Adult General Chief complaint: Urogenital Problems, Male Stated complaint: groin pain Time Seen by Provider: 10/04/24 05:47 History of Present Illness HPI narrative: 62-year-old male presents the emergency department for evaluation of persistent pain in the prostate area. Radiates somewhat to the right lower back area. No fever. No vomiting. He has been using some ibuprofen and Tylenol to help with symptoms and reports inadequate relief. Specifically he is using only 400 mg of ibuprofen 2-3 times per day and taking 1-2 Tylenol tablets twice daily. This is certainly significantly below the maximum allowable dose. Has not use narcotic medication. Was getting some temporary relief from peridium but it was not recommended that he take this senior living. Patient was diagnosed several weeks ago, initially started on ciprofloxacin. He had 1 day of but numbness and tingling in his feet. Was advised by his primary care doctor to stop taking the Cipro and was transitioned onto Bactrim with a plan that he would be on that for the next month. He has seen urology. Specifically the numbness in his feet was only for 1 day and he did not have it even though he stayed on the Cipro for a few more days once it started. It has not returned since he stopped the Cipro and started the Bactrim however. No new trauma or injury. No blood in his urine, no jeff dysuria. No painful bowel movements. Patient has had appropriate CT urogram within the last 2 weeks, this is reviewed. Urology notes from 09/24/2024 are reviewed. Patient has not attempted to contact his urology provider to further clarify his concerns. Last urinalysis that I have for review was 3 weeks ago and was negative for infection. Patient continues to take his Bactrim. When asked specifically what he was worried about that he comes to the emergency room in the wee hours, it just seems like he is unsure of what else he can be doing to help his pain and he is frustrated. It is clear that he was not understanding that this infection takes several weeks to improve and that he has many options available to him [id number] to treat his pain. Reports that his past medical history is benign, home meds are levothyroxine, rosuvastatin Flomax. Taking his Bactrim as prescribed. Nonsmoker. 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 ROS is otherwise notable for that it urology and abdominal symptoms as above, otherwise denies times 12 systems. Related Data Home Medications ?Medication ?Instructions ?Recorded ?Confirmed tamsulosin 0.4 mg capsule (Flomax) 0.4 mg PO DAILY 03/26/22 10/04/24 rosuvastatin 40 mg tablet 40 mg PO DAILY 06/04/23 10/04/24 levothyroxine 100 mcg tablet 100 mcg PO DAILY 10/04/24 10/04/24 sulfamethoxazole 800 1 tab PO BID 10/04/24 10/04/24 mg-trimethoprim 160 mg tablet Previous Rx's ?Medication ?Instructions ?Recorded cyclobenzaprine 10 mg tablet 10 mg PO HS PRN muscle spasm #10 10/04/24 tabs tramadol 25 mg tablet 25 mg PO BID PRN pain #10 tabs 10/04/24 Allergies Allergy/AdvReac Type Severity Reaction Status Date / Time aspirin Allergy Severe Throat Verified 10/04/24 05:50 swelling codeine Allergy Severe Throat Verified 10/04/24 05:50 swelling PFSH PFSH Medical History Thyroid disease ?E07.9 - Disorder of thyroid, unspecified (ICD-10) Hyperlipidemia ?E78.5 - Hyperlipidemia, unspecified (ICD-10) GERD (gastroesophageal reflux disease) ?K21.9 - Gastro-esophageal reflux disease without esophagitis (ICD-10) Arthritis ?M19.90 - Unspecified osteoarthritis, unspecified site (ICD-10) Surgical History History of shoulder surgery ?Z98.890 - Other specified postprocedural states (ICD-10) History of surgery on left wrist ?Z98.890 - Other specified postprocedural states (ICD-10) History of surgery on upper extremity (02/11/22) ?Z98.890 - Other specified postprocedural states (ICD-10) History of herniorrhaphy ?Z98.890 - Other specified postprocedural states (ICD-10) ?Z87.19 - Personal history of other diseases of the digestive system (ICD-10) Family History Father Stroke Esophageal cancer Social History Narrative: former chewing tobacco user quit 2006 Smoking Status: Never smoker Do you use any of these nicotine containing products: None Second hand tobacco smoke exposure: No How often do you have a drink containing alcohol: 2-3 times a week How many standard drinks containing alcohol do you have on a typical day: 1 or 2 How often do you have six or more drinks on one occasion: Never AUDIT-C Alcohol total score: 3 Non-prescribed substance use: denies use service: No Exam Const: Vital Signs, click to edit/add: Vital Signs - 24 hr 10/04/24 05:46 10/04/24 06:16 10/04/24 06:17 Temperature 98.0 F 98.0 F Pulse Rate [Right Pulse Oximeter] 68 Respiratory Rate 18 Blood Pressure [Ri ght Upper Arm] 141/80 H Pulse Oximetry 97 97 Oxygen Delivery Me thod Room Air Documenting provider has reviewed patient's vital signs: yes Common normals: no apparent distress General appearance: cooperative and well kempt Orientation/consciousness: Yes awake Other: Anxious personality but appropriate. Nontoxic appearing. Well nourished well hydrated HENMT: Common normals: normocephalic, moist oral mucous membranes and oropharynx normal Head and scalp: normocephalic Face and sinus: normal facial exam Eye: Common normals: conjunctivae normal General eye: normal appearance of both eyes Conjunctiva: conjunctiva(e) normal Neck & C-Spine: Common normals: full ROM and no lymphadenopathy Resp: Common normals: normal respiratory effort, no use of accessory muscles and clear to auscultation bilaterally Effort & inspection: able to speak in complete sentences Auscultation: clear to auscultation bilaterally Cardio: Common normals: regular rate, regular rhythm, S1 normal heart sound, S2 normal heart sound and no murmurs Rate: regular rate Rhythm: regular rhythm Heart sounds: S1 normal and S2 normal GI: Common normals: Normal to inspection, nondistended, normoactive bowel sounds present, soft to palpation, non-tender, no hepatosplenomegaly and no masses Palpation: soft and no hepatosplenomegaly : Common normals: no CVA tenderness Bladder/kidney exam: no CVA tenderness Back & Pelvis: Common normals: no CVA tenderness Extremity: Common normals: normal to inspection Neuro: Sensorium/orientation: awake Speech: speech normal Gait (neuro): normal gait Psych: Appearance: well kempt Attitude: engaged Insight: fair Skin: Common normals: no rashes or lesions noted General skin exam: no rashes or lesions noted Course Course ED Course: 64-year-old male with documented history of prostatitis, recent extensive lab work, urinalysis and CT. There are no clinical signs of sepsis or complication. I am not the least bit surprised that he is still symptomatic having only been on the Bactrim for less than 2 weeks. Patient is counseled that unfortunately this is the type of infection that does take several weeks to improve on the course of antibiotics and may even require more courses of antibiotics and does have unfortunately a higher failure rate for treatment then many other types of infections that we treat. This will require some long-term diligence. Plan of care was very well outlined by his Urology team. Counseled patient on this. At this time I do not think he needs an antibiotic change. I will perform a urinalysis and some basic blood testing to make sure that we are not signs of kidney dysfunction, progressive infection or other complication. Abdominal exam is very benign I do not recommend another CT, rationale for this is discussed especially with the large amount of radiation. I offered patient pain control medications and we outlined maximum doses of [id number] medications that he is really not taking enough advantage of. He seemed very reassured by the fact that this is an infection that is just not going to be better on the time table that he has for himself and every day is not necessarily going to be better than the last. He will receive 2 mg of oral Dilaudid, 10 mg of Toradol while we await the blood work and urinalysis. If there is anything surprising in the blood work, then we can consider imaging. He asked me if I think he should go back on the Cipro. I let him know that the numbness and tingling for 1 day the did not worsen while he continued to be on the medication is unlikely that the ciprofloxacin was the cause but I do not want to switch antibiotics at this point as he does need a full month of continuous treatment with 1 particular antibiotic prior to changing in most cases. He verbalizes understanding and agreement of that concept. Reevaluation(s) Time of Reevaluation #1: 07:19 Reevaluation #1: Counseled patient on lab findings. Blood labs are reassuring, urinalysis shows nitrate only but not a significant amount of white counts or heavy bacteria. We will need to culture and perform sensitivities on this to determine if he needs antibiotic changes. Counseled patient that this is not unusual in the course of infection. We will contact him only if his infection is resistant to the Bactrim and will send a prescription for a month of another antibiotic. He will need to follow-up with his urologist regarding additional recommendations. I have reviewed that he is eligible to use higher doses of both Tylenol and ibuprofen to treat his pain based on his age and overall health status. Written instructions were provided for this. Small dose of cyclobenzaprine at bedtime to help with sleep were given as well as a few tramadol tablets. His pain is much improved here in the emergency department. Alarm symptoms were reviewed that would warrant ED presentation. He verbalizes understanding and agreement. Vital Signs Vital signs: Initial Vital Signs Temperature 98.0 F 10/04/24 05:46 Temperature Source Temporal Artery Scan 10/04/24 05:46 Pulse Rate 68 10/04/24 05:46 Respiratory Rate 18 10/04/24 05:46 Blood Pressure 141/80 H 10/04/24 05:46 Blood Pressure Mean 100 10/04/24 05:46 Blood Pressure Position Sitting 10/04/24 05:46 Pulse Oximetry 97 10/04/24 05:46 Oxygen Delivery Method Room Air 10/04/24 05:46 Vital Signs Temperature 98.0 F 10/04/24 05:46 Pulse Rate 68 10/04/24 05:46 Respiratory Rate 18 10/04/24 05:46 Blood Pressure 141/80 H 10/04/24 05:46 Pulse Oximetry 97 10/04/24 05:46 Oxygen Delivery Method Room Air 10/04/24 05:46 Temperature 98.0 F 10/04/24 06:16 Pulse Rate 68 10/04/24 05:46 Respiratory Rate 18 10/04/24 05:46 Blood Pressure 141/80 H 10/04/24 05:46 Pulse Oximetry 97 10/04/24 06:17 Oxygen Delivery Method Room Air 10/04/24 05:46 Medications Administered Medications: Discontinued Medications Generic Name Dose Route Start Last Admin Trade Name David PRN Reason Stop Dose Admin Hydromorphone HCl 2 mg 10/04/24 06:06 10/04/24 06:15 Hydromorphone 2 Mg Tablet PO 10/04/24 06:07 2 mg ONCE ONE Administration Ketorolac Tromethamine 10 mg 10/04/24 06:06 10/04/24 06:16 Ketorolac 10 Mg Tablet PO 10/04/24 06:07 10 mg ONCE ONE Administration Medical Decision Making Lab Data Lab results reviewed: Yes I reviewed the patient's lab results Lab results narrative: Nitrates are present in urinalysis, may be a sign of resistance to Bactrim, may just be part of the prostatitis. There are not a significant number of white counts or other markers of significant infection. Will culture the urine and perform sensitivities to determine if changes needed. Patient will need to be contacted with these results. If resistant to Bactrim, recommendations for Cipro or Keflex Labs: Lab Results 10/04/24 10/04/24 10/04/24 Range/Units 05:55 06:10 06:17 WBC 5.55 (4.50-11.00) K/uL RBC 4.39 (4.30-5.90) m/uL Hgb 13.6 (13.5-17.5) gm/dL Hct 40.6 (37.0-53.0) % MCV 93 (80-100) fL MCH 31 (26-34) pg MCHC 34 (32-36) gm/dL RDW Coeff of Ayla 12.4 (11.5-15.5) % Plt Count 237 (140-440) K/uL Neut % (Auto) 66.6 (42.0-72.0) % Lymph % (Auto) 20.7 (20-44) % [place] % (Auto) 7.4 (0.0-11.0) % Eos % (Auto) 4.0 (0.0-7.0) % Baso % (Auto) 1.3 (0.0-3.0) % Neut # (Auto) 3.70 (1.7-7.0) K/uL Lymph # (Auto) 1.15 (0.90-2.90) K/uL [place] # (Auto) 0.40 (0.00-0.90) K/UL Eos # (Auto) 0.22 (0.00-0.50) K/uL Baso # (Auto) 0.07 (0.00-0.30) K/uL Abs Immat Gran (auto) 0.00 (0.00-0.30) K/uL Imm/Tot Granulo (auto) 0.0 % Sodium 136 (135-149) mmol/L Potassium 4.6 (3.6-5.1) mmol/L Chloride 102 (96-114) mmol/L Carbon Dioxide 25 (20-32) mmol/L Anion Gap 9 (7-15) mEq/L BUN 21 (7-30) mg/dL Creatinine 1.2 (0.5-1.5) mg/dL Estimated Creat Clear 57.60 Estimated GFR 68 ml/min Glucose 108 (60-115) mg/dL Calcium 9.7 (8.4-10.6) mg/dL C-Reactive Protein < 0.5 L (0.5-1.0) mg/dL Urine Color Yellow (Yellow) Urine Appearance Clear (Clear) Urine pH 6.5 (5.0-8.5) Ur Specific [place] 1.010 (1.000-1.030) Urine Protein Negative (Negative) Urine Glucose (UA) Negative (Negative) Urine Ketones Negative (Negative) Urine Blood Negative (Negative) Urine Nitrite Positive A (Negative) Urine Bilirubin Negative (Negative) Urine Urobilinogen 0.2 (0.2-1.0) Ur Leukocyte Esterase Negative (Negative) Urine RBC 0-2 (0-2) Urine WBC 0-2 (0-5) Ur Squamous Epith Cells Few (None-Few) Urine Bacteria Few A (None) SARS-CoV-2 (PCR) Negative SARS-CoV-2 (Negative) Influenza Type A (PCR) Negative PCR FLU A (Negative) Influenza Type B (PCR) Negative PCR FLU B (Negative) RSV (PCR) Negative PCR RSV (Negative) Discharge Plan Discharge Clinical Impression: Prostatitis Patient Disposition: Home w/ Parent or Adult Condition: Improved Instructions: Prostatitis (ED) Additional Instructions: I am glad that the medications were helpful for you. I am sorry that prostatitis can be a very frustrating condition. Even with proper treatment, sometimes it does require multiple rounds of antibiotics and does take significantly longer to improve on antibiotic therapy then most infections. Your urine does show some mild signs of infection today. This is not necessarily a sign of Bactrim resistance, you may still be on the right antibiotic. We will culture this urine and perform antibiotic sensitivities and should have an answer in a few days if things need to be changed. You will be contacted only if things need to be changed. Most importantly, please be in contact with your urology team regarding or symptoms and any further management regarding this prostatitis. Here in the emergency room, I can reassure you that there are no signs the infection is spreading into your blood or that you have any signs of complications with the kidneys or other organs. Continue taking your Bactrim for now. As we discussed, based on your age, overall health and kidney function, you can go up on the medications to treat your pain. Remember that Tylenol is the safest. I recommend 4000 mg per day. This would be 2 extra-strength Tylenol or 3 regular Tylenol every 6 hours. If you prefer to take the extended release Tylenol, also known as Tylenol Arthritis, that would be 2 tablets 3 times daily instead. This is somewhat easier to remember to take. If your pain is not relieved on the Tylenol, then I recommend using ibuprofen. Based on your overall health you may take 600 mg up to every 6 hours. Once you have had more time on the antibiotics, you will not likely need the pain medicine as often. I have given you a very small supply of tramadol, a narcotic pain medication that you may use if the pain is severe. Please remember to max out the Tylenol and ibuprofen 1st. Any further refills would need to come from your primary care or Urology team, not the emergency department. You should come to the emergency department if you have persistent high fever over 100.4, significant amounts of blood in your urine or stools, severe weakness to the point where you cannot ambulate around your home, or other signs of severe complication. Remember that you may also use [id number] sleep aids such as 10 mg of melatonin at bedtime, Benadryl or Unisom to help you sleep. I have also provided a small number of cyclobenzaprine tablets which is a muscle relaxant which she may find helpful to use at bedtime if needed. If it causes too much drowsiness, consider using half of a tablet instead. Activity Level: No Restrictions Discharge Diet: Regular Prescriptions: New cyclobenzaprine 10 mg tablet 10 mg PO HS PRN (Reason: muscle spasm) Qty: 10 1RF Rx Instructions: Use as needed for pain at bedtime, will cause drowsiness. tramadol 25 mg tablet 25 mg PO BID PRN (Reason: pain) Qty: 10 0RF Rx Instructions: Use for severe pain not relieved by previously discussed maximum doses of Tylenol and ibuprofen No Action tamsulosin [Flomax] 0.4 mg capsule 0.4 mg PO DAILY sulfamethoxazole-trimethoprim 800-160 mg tablet 1 tab PO BID levothyroxine 100 mcg tablet 100 mcg PO DAILY rosuvastatin 40 mg tablet 40 mg PO DAILY Follow Up/Referrals: SAÚL JACOBS DO [Primary Care Provider] - Stand Alone Forms: Gift [facility] Info Instructions
[2024-10-04] MEDS: HYDROmorphone 2 MG TABLET PO (06:15)
[2024-10-04 06:16] VITALS: TEMP 36.7
[2024-10-04] MEDS: KETOROLAC 10 MG TABLET PO (06:16)
[2024-10-04 06:17] VITALS: O2SAT 97
[2024-10-04 06:26] LABS: Basophils Absolute Auto 0.07 K/uL (0.00-0.30); Basophils Percent Auto 1.3 % (0.0-3.0); Eosinophils Absolute Auto 0.22 K/uL (0.00-0.50); Hematocrit 40.6 % (37.0-53.0); Hemoglobin* 13.6 gm/dL (13.5-17.5); Lymphocytes Absolute Auto 1.15 K/uL (0.90-2.90); Lymphocytes Percent Auto 20.7 % (20-44); Mean Corpuscular HGB Conc 34 gm/dL (32-36); Mean Corpuscular Hemoglobin 31 pg (26-34); Mean Corpuscular Volume 93 fL (80-100); Monocytes Percent Auto 7.4 % (0.0-11.0); Neutrophils Percent Auto 66.6 % (42.0-72.0); Platelet Count* 237 K/uL (140-440); RDW Coefficient of Variation % 12.4 % (11.5-15.5); Red Blood Count 4.39 m/uL (4.30-5.90); Slide Review Reflex No; White Blood Count* 5.55 K/uL (4.50-11.00)
[2024-10-04 06:38] LABS: Chloride* 102 mmol/L (96-114); Potassium* 4.6 mmol/L (3.6-5.1); Sodium* 136 mmol/L (135-149)
[2024-10-04 06:41] LABS: Creatinine* 1.2 mg/dL (0.5-1.5); Estimated Glomerular Filt Rate 68 ml/min
[2024-10-04 06:42] LABS: Anion Gap 9 mEq/L (7-15); Blood Urea Nitrogen* 21 mg/dL (7-30); Calcium* 9.7 mg/dL (8.4-10.6); Carbon Dioxide* 25 mmol/L (20-32); Glucose* 108 mg/dL (60-115)
[2024-10-04 06:51] LABS: C Reactive Protein* < 0.5 mg/dL (0.5-1.0)
[2024-10-04 06:59] LABS: PCR FLU A Negative PCR FLU A (Negative); PCR FLU B Negative PCR FLU B (Negative); PCR RSV Negative PCR RSV (Negative); SARS PCR* Negative SARS-CoV-2 (Negative)
--- OUTSIDE RECORDS SUMMARY | 2024-10-04 07:06 | XMS_ITS | Clinical Summary ---
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 Take 1 Tablet (40 mg) by [...] Department Care Team Description 09/24/2024 12:30 PM HYBRID POWERTRAIN DEVELOPMENT ENGINEER Office Visit [address] [address] Melinda Bass PA Consult (N41.0 (ICD-10-CM) - Prostatitis, acute /N48.89 (ICD-10-CM) - Penile pain /) 09/24/2024 Travel 09/21/2024 10:30 AM HYBRID POWERTRAIN DEVELOPMENT ENGINEER Ancillary Procedure [address] [address] 09/21/2024 10:00 AM HYBRID POWERTRAIN DEVELOPMENT ENGINEER Orders Only [address] [address] [place], [place] [facility] 09/21/2024 8:05 AM HYBRID POWERTRAIN DEVELOPMENT ENGINEER Office Visit [address] [address] Mino Capps DO Urinary Problem (X2 weeks - has had a burning with urination and in is prostate - went to UC on 09/13 - since stopping the phenazopyridine has been having pain again ) 09/21/2024 Orders Only [address] [address] Mino Capps, <No scans attached> 09/21/2024 Travel 09/13/2024 10:05 AM HYBRID POWERTRAIN DEVELOPMENT ENGINEER Office Visit [facility] [address] [address] Katarzyna Anaya PA UTI 09/13/2024 Travel 09/07/2024 7:50 AM HYBRID POWERTRAIN DEVELOPMENT ENGINEER Office Visit [address] [place] [address] Arin Tuttle PA UTI 09/07/2024 Travel 09/06/2024 3:45 PM HYBRID POWERTRAIN DEVELOPMENT ENGINEER E-Visit [facility] [address] [place] [address] Emily Le MA Previous Questionnaire Submission 08/12/2024 Telephone [facility] [address] [facility] [address] [place] [address] Amara Chowdhury, VIANEY Refill Request (Rosuvastatin) 08/03/2024 3:30 PM HYBRID POWERTRAIN DEVELOPMENT ENGINEER Orders Only [facility] [place] [address] Lab, [place] [facility] 08/03/2024 Travel 07/28/2024 8:10 AM HYBRID POWERTRAIN DEVELOPMENT ENGINEER Procedure Only [facility] [place] [address] Hilario Joel MD Procedure (Ultrasound guided injection lef... 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 Not on file No t on file Obstetrics History Last Filed Vital Signs Vital Sign Reading Time Taken Comments Blood Pressure 128/60 09/24/2024 12:13 PM HYBRID POWERTRAIN DEVELOPMENT ENGINEER Pulse 60 09/24/2024 12:13 PM HYBRID POWERTRAIN DEVELOPMENT ENGINEER Temperature 36.3 C (97.3 F) 09/13/2024 10:43 AM HYBRID POWERTRAIN DEVELOPMENT ENGINEER Respiratory Rate 12 09/13/2024 10:4 3 AM HYBRID POWERTRAIN DEVELOPMENT ENGINEER Oxygen Saturation 99% 09/21/2024 7:53 AM HYBRID POWERTRAIN DEVELOPMENT ENGINEER Inhaled Oxygen Concentration - - Weight 66.1 kg (145 lb 11.2 oz) 025 12:13 PM HYBRID POWERTRAIN DEVELOPMENT ENGINEER Height 167.5 cm (5' 5.95) 07/05/2024 8:05 AM CD T Body Mass Index 23.56 07/05/2024 8:05 AM CDT Plan of Treatment Upcoming Encounters Date Type Department Care Team (Late st Contact Info) Description 12/15/2024 8:30 AM CDT Ancillary Procedure [facility] [address] [place] [address] 12/16/2024 11:00 AM CDT Telemedicine [facility] [address] [place] [address] Sahil Ferrer MD [address] [place] [address] Health Maintenance Due Date Last Done Comments [...] Procedure Name Priority Date/Time Associated Diagnosis Comments [place] OLIVERIO POST-VOIDING RESIDUAL URINE&/BLADDER CAP Routine 09/24/2024 12:00 AM HYBRID POWERTRAIN DEVELOPMENT ENGINEER Prostatitis, acute CT ABDOMEN PELVIS UROGRAM WWO JASWANT 09/21/2024 11:26 AM HYBRID POWERTRAIN DEVELOPMENT ENGINEER Prostatitis, acute Penile pain CREATININE,ISTAT Routine 09/21/2024 10:2 3 AM HYBRID POWERTRAIN DEVELOPMENT ENGINEER Observation or evaluation for suspected condition TX BLOOD COUNT COMPLETE AUTO&AUTO DIFRNTL WBC Routine 09/13/2024 12:28 PM HYBRID POWERTRAIN DEVELOPMENT ENGINEER Dysuria PSA TOTAL Routine 09/13/2024 12:27 PM HYBRID POWERTRAIN DEVELOPMENT ENGINEER Dysuria URINE CULTURE Routine 09/13/2024 10:52 AM HYBRID POWERTRAIN DEVELOPMENT ENGINEER Dysuria UA W/ SEDIMENT EXAM REFLEXED PER CRITERIA STAT 09/13/2024 10:52 AM HYBRID POWERTRAIN DEVELOPMENT ENGINEER Dysuria URINALYSIS MACROSCOPIC - [facility] ONLY POC DIP ([facility]) Routine 09/07/2024 7:55 AM HYBRID POWERTRAIN DEVELOPMENT ENGINEER Lower urinary tract symptoms (LUTS) URINE CULTURE Routine 09/07/2024 7:54 AM HYBRID POWERTRAIN DEVELOPMENT ENGINEER Lower urinary tract symptoms (LUTS) URINALYSIS MICROSCOPIC Routine 09/07/2024 7:54 AM HYBRID POWERTRAIN DEVELOPMENT ENGINEER Lower urinary tract symptoms (LUTS) TSH Routine 08/03/2024 3:15 PM HYBRID POWERTRAIN DEVELOPMENT ENGINEER Hypothyroidism, unspecified type BEDSIDE US STUDY ARCHIVE Routine 07/28/2024 2:17 PM HYBRID POWERTRAIN DEVELOPMENT ENGINEER Primary osteoarthritis of left hip TSH Routine 07/05/2024 9:11 AM CDT Hypothyroidism, unspecified type BASIC METABOLIC PANEL Routine 07/05/2024 9:11 AM CDT Annual physical exam PSA (TOTAL) ([facility]) Routine 07/05/2024 9 :11 AM CDT BPH with urinary obstruction LIPID PANEL Routine 07/05/2024 9:11 AM CDT 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 ALT (SGPT) Routine 07/05/2024 9:09 AM CDT Lichen planus SCAN-COLONOSCOPY 12/06/2022 10:0 0 AM CDT from Last 3 Months or Most Recently Relevant to Health Maintenance Results * [place] OLIVERIO POST-VOIDING RESIDUAL URINE&/BLADDER CAP (09/24/2024 12:00 AM HYBRID POWERTRAIN DEVELOPMENT ENGINEER) us Melinda PENA PB - URINARY SYSTEM SERVI CLARA Final Result * CT ABDOMEN PELVIS UROGRAM WWO (09/21/2024 11:26 AM HYBRID POWERTRAIN DEVELOPMENT ENGINEER) Anatomical Region Laterality Modality Abdomen, Pelvis, KIDNEYS, BLADDER Computed Tomography 09/21/2024 1:18 PM HYBRID POWERTRAIN DEVELOPMENT ENGINEER Impressions 09/21/2024 1:18 PM HYBRID POWERTRAIN DEVELOPMENT ENGINEER 1. Bilateral renal cysts and too small [...] PM (Electronically Signed) Narrative 09/21/2024 1:18 PM HYBRID POWERTRAIN DEVELOPMENT ENGINEER For Patients: As a result of the [...] Result * POCT Creatinine (09/21/2024 10:23 AM HYBRID POWERTRAIN DEVELOPMENT ENGINEER) Pathologist [facility] POCT,CREATININ E, ISTAT 1.0 0.6 - 1.3 mg/dL [facility] Blood BLOOD SPECIMEN / Unknown 09/21/2024 10:23 AM HYBRID POWERTRAIN DEVELOPMENT ENGINEER 09/21/2024 10:23 AM HYBRID POWERTRAIN DEVELOPMENT ENGINEER Adei Jefry DO CHEMISTRY Final Result [facility] [address] [place] [address], [facility] [address] [place] [address] * CBC & DIFF [72833.0] (09/13/2024 12:28 PM HYBRID POWERTRAIN DEVELOPMENT ENGINEER) Pathologist [facility] WHITE BLOOD CELL COUNT 6.1 3.8 - 10.8 Thousand/u L [facility] ([facility]) RED BLOOD CELL COUNT 4.66 4.20 - 5.80 Million/uL [facility]) HEMOGLOBIN 14.2 13.2 - 17.1 g/dL [facility]) HEMATOCRIT 42.9 38.5 - 50.0 % [facility]) MCV 92.1 80.0 - 100.0 fL [facility]) MCH 30.5 27.0 - 33.0 pg [facility]) MCHC 33.1 32.0 - 36.0 g/dL [facility]) Comment: For adults, a slight decrease in the calculated MCHC value (in the range of 30 to 32 g/dL) is most likely not clinically significant; however, it should be interpreted with caution in correlation with other red cell parameters and the patient's clinical condition. RDW 12.4 11.0 - 15.0 % [facility]) PLATELET COUNT 247 140 - 400 Thousand/u L [facility]) MPV 9.0 7.5 - 12.5 fL [facility]) ABSOLUTE NEUTROPHILS 4,227 1,500 - 7,800 cells/uL [facility]) ABSOLUTE LYMPHOCYTES 1,165 850 - 3,900 cells/uL [facility]) ABSOLUTE MONOCYTES 470 200 - 950 cells/uL [facility]) ABSOLUTE EOSINOPHILS 177 15 - 500 cells/uL [facility]) ABSOLUTE BASOPHILS 61 0 - 200 cells/uL [facility]) NEUTROPHILS 69.3 % [facility]) LYMPHOCYTES 19.1 % [facility] MONOCYTES 7.7 % [facility]) EOSINOPHILS 2.9 % [facility]) BASOPHILS 1.0 % [facility]) Blood BLOOD SPECIMEN / Unknown 09/13/2024 12:28 PM HYBRID POWERTRAIN DEVELOPMENT ENGINEER 09/13/2024 12:29 PM HYBRID POWERTRAIN DEVELOPMENT ENGINEER Narrative [facility] - 09/13/2024 1:17 PM HYBRID POWERTRAIN DEVELOPMENT ENGINEER SPLIT 09/13/2024 FROM [id number] us Katarzyna PENA HEMATOLOGY Final Resu lt [facility] [address] [place] [address], [facility] (Urgent Care) [address] [place] [address] * PSA TOTAL (09/13/2024 12:27 PM HYBRID POWERTRAIN DEVELOPMENT ENGINEER) PSA, TOTAL 0.60 < OR = 4.00 ng/mL [facility] marlene Diallo Comment: The total PSA value from this assay system is standardized against the WHO standard. The test result will be approximately 20% lower when compared to the equimolar-standardized total PSA (Biju Halstad). Comparison of serial PSA results should be interpreted with this fact in mind. This test was performed using the Siemens chemiluminescent method. Values obtained from different assay methods cannot be used interchangeably. PSA levels, regardless of value, should not be interpreted as absolute evidence of the presence or absence of disease. Blood BLOOD SPECIMEN / Unknown 09/13/2024 12:27 PM HYBRID POWERTRAIN DEVELOPMENT ENGINEER 09/13/2024 12:28 PM HYBRID POWERTRAIN DEVELOPMENT ENGINEER Narrative [facility] - 09/14/2024 5:38 AM HYBRID POWERTRAIN DEVELOPMENT ENGINEER MULTIPLE TESTING PRIORITIES; ROUTINE TESTING TO FOLLOW. Katarzyna PENA CHEMISTRY Final Resu lt [employer] [address] [place] [address], [facility] [address] [place] [phone] * URINE CULTURE [[id number]] (09/13/2024 10:52 AM HYBRID POWERTRAIN DEVELOPMENT ENGINEER) Only the most recent of2 resultswithin the time period is included. CULTURE No growth (<1,000 CFU/mL) 09/14/2024 1:42 PM HYBRID POWERTRAIN DEVELOPMENT ENGINEER [facility] Urine URINE SPECIMEN / Unknown Non-Blood / Unknown 09/13/2024 10:52 AM HYBRID POWERTRAIN DEVELOPMENT ENGINEER 09/13/2024 10:52 AM HYBRID POWERTRAIN DEVELOPMENT ENGINEER Katarzyna PENA MICROBIOLOGY Final Resu lt [facility] [address] [place] [address], * UA W/ SEDIMENT EXAM REFLEXED PER CRITERIA [[id number]] (09/13/2024 10:52 AM HYBRID POWERTRAIN DEVELOPMENT ENGINEER) COLOR YELLOW YELLOW [facility]) APPEARANCE CLEAR CLEAR [facility]) SPECIFIC GRAVITY 1.020 1.001 - 1.035 [facility]) PH 5.5 5.0 - 8.0 [facility]) GLUCOSE NEGATIVE NEGATIVE [facility]) BILIRUBIN NEGATIVE NEGATIVE [facility]) KETONES NEGATIVE NEGATIVE [facility]) OCCULT BLOOD NEGATIVE NEGATIVE [facility]) PROTEIN NEGATIVE NEGATIVE [facility]) NITRITE NEGATIVE NEGATIVE [facility]) LEUKOCYTE ESTERASE NEGATIVE NEGATIVE [facility]) Urine URINE SPECIMEN / Unknown 09/13/2024 10:52 AM HYBRID POWERTRAIN DEVELOPMENT ENGINEER 09/13/2024 10:53 AM HYBRID POWERTRAIN DEVELOPMENT ENGINEER Katarzyna Anaya PA URINE Final Resu lt [facility] [address] [place] [address], [facility] (Urgent Care) [address] [place] [address] * POCT Urinalysis Dipstick Only (09/07/2024 7:55 AM HYBRID POWERTRAIN DEVELOPMENT ENGINEER) PH 7.0 5.0 - 8.0 [facility] SPECIFIC GRAVITY 1.020 1.001 - 1.035 [facility] GLUCOSE NEGATIVE NEGATIVE [facility] BILIRUBIN NEGATIVE NEGATIVE [facility] KETONES NEGATIVE NEGATIVE [facility] OCCULT BLOOD NEGATIVE NEGATIVE [facility] PROTEIN NEGATIVE NEGATIVE [facility] NITRITE NEGATIVE NEGATIVE [facility] LEUKOCYTE ESTERASE NEGATIVE NEGATIVE [facility] Urine URINE SPECIMEN / Unknown 09/07/2024 7:55 AM HYBRID POWERTRAIN DEVELOPMENT ENGINEER 09/07/2024 7:55 AM HYBRID POWERTRAIN DEVELOPMENT ENGINEER Arin PENA URINE Final Result Performing Organization Address City/[facility]/ZIP Co de Phone Number [facility] [address] [place] [address], [facility] [address] [place] [address] * URINALYSIS MICROSCOPIC (09/07/2024 7:54 AM HYBRID POWERTRAIN DEVELOPMENT ENGINEER) RBC 0-2 0-2, None Seen /HPF 09/07/2024 2:07 PM HYBRID POWERTRAIN DEVELOPMENT ENGINEER [facility] WBC 0-2 0-2, 3-5, None Seen /HPF 09/07/2024 2:07 PM HYBRID POWERTRAIN DEVELOPMENT ENGINEER [facility] BACTERIA None Seen None Seen, Rare, Few Bacteria/ HPF 09/07/2024 2:07 PM HYBRID POWERTRAIN DEVELOPMENT ENGINEER [facility] EPITHELIAL CELLS None Seen None Seen, Few Epi/HPF 09/07/2024 2:07 PM HYBRID POWERTRAIN DEVELOPMENT ENGINEER [facility] HYALINE CASTS 0-2 0-2, 3-5 /LPF 09/07/2024 2:07 PM HYBRID POWERTRAIN DEVELOPMENT ENGINEER [facility] Urine URINE SPECIMEN / Unknown Non-Blood / Unknown 09/07/2024 7:54 AM HYBRID POWERTRAIN DEVELOPMENT ENGINEER 09/07/2024 7:54 AM HYBRID POWERTRAIN DEVELOPMENT ENGINEER us Arin PENA URINE Final Result [facility] [address] [place] [address], [place] * TSH (08/03/2024 3:15 PM HYBRID POWERTRAIN DEVELOPMENT ENGINEER) Only the most recent of2 resultswithin the time period is included. TSH 0.71 0.40 - 4.50 mIU/L [facility] Blood BLOOD SPECIMEN / Unknown 08/03/2024 3:15 PM HYBRID POWERTRAIN DEVELOPMENT ENGINEER 08/03/2024 3:16 PM HYBRID POWERTRAIN DEVELOPMENT ENGINEER Mino Capps DO CHEMISTRY Final Result [facility] [address] [place] [address], [place] [phone] [facility] [address] [place] [address] * BEDSIDE US STUDY ARCHIVE (07/28/2024 2:17 PM HYBRID POWERTRAIN DEVELOPMENT ENGINEER) Jerome Lange Lilli Reynaldo - 07/28/2024 2:17 PM HYBRID POWERTRAIN DEVELOPMENT ENGINEER The patient was seen for ultrasound guided [...] compared to the equimolar-standardized total PSA (Biju Halstad). Comparison of serial PSA results should be [...] SEND OUTS Final Result Performing Organization Address City/[facility]/ZIP Co de Phone Number [facility] [address] [place] [address], [place] [phone] [facility] [address] [place] [address] * (ABNORMAL) LIPID PANEL (07/05/2024 9:11 AM CDT) [facility] Signature CHOLESTEROL, TOTAL 155 <200 mg/dL [facility] HDL CHOLESTEROL 49 > OR = 40 mg/dL [facility] TRIGLYCERIDES 167(H) <150 mg/dL [facility] LDL-CHOLESTEROL 79 mg/dL (calc) [facility] Comment: Reference range: <100 Desirable range <100 mg/dL for primary prevention; <70 mg/dL for patients with CHD or diabetic patients with > or = 2 CHD risk factors. LDL-C is now calculated using the Jarad-Dae calculation, which is a validated novel method providing better accuracy than the Friedewald equation in the estimation of LDL-C. Jarad SS et al. FELICE. 2013;310(19): 3822-5053 (http://education.NoteVault/faq/NHU289) CHOL/HDLC RATIO 3.2 <5.0 (calc) [facility] NON HDL CHOLESTEROL 106 <130 mg/dL (calc) [facility] Comment: For patients with diabetes plus 1 major ASCVD risk factor, treating to a non-HDL-C goal of <100 mg/dL (LDL-C of <70 mg/dL) is considered a therapeutic option. Blood BLOOD SPECIMEN / Unknown 07/05/2024 9:11 AM CDT 07/05/2024 9:12 AM CDT Mino Capps DO CHEMISTRY Final Result Performing Organization Address City/[facility]/ZIP Co de Phone Number [facility] [address] [place] [address], [place] [phone] [facility] [address] [place] [address] * (ABNORMAL) BASIC METABOLIC PANEL (07/05/2024 9:11 [...] us Mino Capps DO CHEMISTRY Final Result [facility] [address] [place] [address], [facility] [address] [place] [address] * ALT (SGPT) (07/05/2024 9:09 AM CDT) Pathologist [facility] ALT 43 9 - 46 U/L [facility] Blood BLOOD SPECIMEN / Unknown 07/05/2024 9:09 AM CDT 07/05/2024 9:10 AM CDT us Mino Capps DO CHEMISTRY Final Result [facility] [address] [facility] [place] [address], [place] [phone] [facility] [address] [place] [address] * SCAN-COLONOSCOPY (12/06/2022 10:00 AM CDT) Narrative Procedure Note Jacky Garvin MD - 12/06/2022 8:51 AM CDT [facility] [address], [address], [place] [address] Patient Name: Satya Anthony Gender: Male Exam Date: 12/06/2022 Visit Number: [id number] Age: 62 Years Date of : 1960 Attending MD: Jacky Garvin MD Medical Record#: [id number] Procedure: Colonoscopy Indications: Previous adenomatous polyp(s) Referring MD: Referral Self Primary MD: Mino Capps DO Medications: Admitting Medications: 0.9% Normal Saline at [facility] Intra Procedure Medications: Patient received monitored anesthesia [...] signed by: Jeremias Rudd [place] [address] Orders Instruction(s)/Education: Instruction/Education Timeframe Assessment Colon Cancer [...] Relevant to Health Maintenance Insurance [address] [place] [address] [place] [address] [place] [address] [address] [place] [address] Advance Directives * Full Code (Latest Code Status on File) Date Activated Date Inactivated Comments 01/28/2024 8:43 AM 01/28/2024 5:01 PM Question Answer Comments Code Status Discussion: Unable to Assess Preferences, Provider to review later Care Teams Utility Agent Relationship Specialty Start Date End Date Mino Capps DO [address] [place] [address] PCP - General Family Practice 04/11/23 Melinda Bass PA [address] [facility] [place] [address] Physician [employer] Reading Teacher 09/24/24
--- OUTSIDE RECORDS SUMMARY | 2024-10-04 07:06 | XMS_ITS | Encounter Summary ---
Author Organization [place] Address [address] [place] [address] Care Team Providers Care Qa Automation Architect Name Role Phone Solitario Trevino MD Primary Care Provider [phone] Abdirashid Lopez MD Primary Care Provider + [phone] Abdirashid Lopez MD Unavailable [phone] Abdirashid Lopez MD Unavailable [phone] Darshan Whyte Unavailable Unavailable Encounter Details Date Type Department Care Team (Late st Contact Info) Description 07/27/2013 MyC Medical Advice [facility] [address] [place] [phone] Solitario Trevino MD [address] [facility] [address] [place] [address] Social History Tobacco Use Types Packs/Day Years Used Date Smoking Tobacco: Never Smokeless Tobacco: Never Alcohol Use Standard Drinks/Week Comments Yes 0 (1 standard drink = 0.6 oz pur e alcohol) Occasionally Sex and Gender Information Value Date Recorded Sex Assigned at Male 06/25/2019 7:25 AM CDT 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:39 AM CUPOLA TENDER Gender Identity Male 06/25/2019 7:25 AM CDT Sexual Orientation Straight 06/25/2019 7: 25 AM CDT documented as of this encounter Plan of Treatment Not on file documented as of this encounter Visit Diagnoses Not on filedocumented in this encounter Care Teams Qa Automation Architect Relationship Specialty Start Date End Date Solitario Trevino MD [address] [place] [address] PCP - General Internal Medicine 04/14/13 05/08/15 Abdirashid Lopez MD [address] [place] [address] PCP - General Family Practice 05/09/15 07/07/22 [place] [address] [place] [address] PCP - Assigned PCP 05/08/14 11/10/18 [place] [address] [place] [address] Assigned PCP 05/08/14 05/24/22 Darshan Whyte Personal Advocate & Liaison (PAL) Family Practice 06/22/20 07/02/20 documented as of this encounter
--- OUTSIDE RECORDS SUMMARY | 2024-10-04 07:06 | XMS_ITS | Encounter Summary ---
Author Organization [place] Address [address] [place] [address]. [place] [address] Care Team Providers Care Manufacturing Specialist Name Role Phone Solitario Trevino MD Primary Care Provider [phone] Abdirashid Lopez MD Primary Care Provider + [phone] Abdirashid Lopez MD Unavailable [phone] Abdirashid Lopez MD Unavailable [phone] Darshan Whyte Unavailable Unavailable Encounter Details Date Type Department Care Team (Late st Contact Info) Description 05/12/2014 MyC Medical Advice [address] [address] [place] [address] [place] [address] Social History Tobacco Use Types Packs/Day Years Used Date Smoking Tobacco: Never Smokeless Tobacco: Never Alcohol Use Standard Drinks/Week Comments Yes 3.3 (1 standard drink = 0.6 oz p ure alcohol) Sex and Gender Information Value Date Recorded Sex Assigned at Male 06/25/2019 7:25 AM CDT 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:39 AM PARTS CLERK Gender Identity Male 06/25/2019 7:25 AM CDT Sexual Orientation Straight 06/25/2019 7: 25 AM CDT Occupation Industry Job Start Date Job End Date Not on file Not on file Not on file Not on file documented as of this encounter Plan of Treatment Not on file documented as of this encounter Visit Diagnoses Not on filedocumented in this encounter Care Teams Manufacturing Specialist Relationship Specialty Start Date End Date Solitario Trevino MD [address] [place] [address] PCP - General Internal Medicine 04/14/13 05/08/15 Abdirashid Lopez MD [address] [place] [address] PCP - General Family Practice 05/09/15 07/07/22 [place] [address] [place] [address] PCP - Assigned PCP 05/08/14 11/10/18 [place] [address] [place] [address] Assigned PCP 05/08/14 05/24/22 Darshan Whyte Personal Advocate & Liaison (PAL) Family Practice 06/22/20 07/02/20 documented as of this encounter
--- OUTSIDE RECORDS SUMMARY | 2024-10-04 07:07 | XMS_ITS | Encounter Summary ---
Author Organization [place] Address [address] [place] [address] Care Team Providers Care Office Machine Service Supervisor Name Role Phone Solitario Trevino MD Primary Care Provider Abdirashid Lopez MD Primary Care Provider + [phone] Abdirashid Lopez MD Unavailable [phone] Abdirashid Lopez MD Unavailable [phone] Darshan Whyte Unavailable Unavailable Encounter Details Date Type Department Care Team (Late st Contact Info) Description 04/17/2013 MyC Medical Advice [facility] [address] [facility] [address] [place] [phone] Solitario Trevino MD [address] [facility] [address] [place] [address] Social History Tobacco Use Types Packs/Day Years Used Date Smoking Tobacco: Never Smokeless Tobacco: Never Alcohol Use Standard Drinks/Week Comments Yes 0 (1 standard drink = 0.6 oz pur e alcohol) Occasionally Sex and Gender Information Value Date Recorded Sex Assigned at Male 06/25/2019 7:25 AM CDT 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:39 AM MANAGER SOFTWARE Gender Identity Male 06/25/2019 7:25 AM CDT Sexual Orientation Straight 06/25/2019 7: 25 AM CDT documented as of this encounter Plan of Treatment Not on file documented as of this encounter Visit Diagnoses Not on filedocumented in this encounter Care Teams Office Machine Service Supervisor Relationship Specialty Start Date End Date Solitario Trevino MD [address] [place] [address] PCP - General Internal Medicine 04/14/13 05/08/15 Abdirashid Lopez MD [address] [place] [address] PCP - General Family Practice 05/09/15 07/07/22 [place] [address] [place] [address] PCP - Assigned PCP 05/08/14 11/10/18 [place] [address] [place] [address] Assigned PCP 05/08/14 05/24/22 Darshan Whyte Personal Advocate & Liaison (PAL) Family Practice 06/22/20 07/02/20 documented as of this encounter
--- OUTSIDE RECORDS SUMMARY | 2024-10-04 07:07 | XMS_ITS | Encounter Summary ---
Author Organization [place] Address [address] [place] [address] Care Team Providers Care Care Professional Name Role Phone Abdirashid Lopez MD Primary Care Provider + [phone] Abdirashid Lopez MD Unavailable [phone] Darshan Whyte Unavailable Unavailable Encounter Details Date Type Department Care Team (Late st Contact Info) Description 06/14/2019 MyC Medical Advice [address] [address] [place] [address] [place], [place] [address] Social History Tobacco Use Types Packs/Day Years Used Date Smoking Tobacco: Never Smokeless Tobacco: Never Alcohol Use Standard Drinks/Week Comments Yes 3.3 (1 standard drink = 0.6 oz p ure alcohol) occ PHQ-2 Answer Date Recorded PHQ-2 Score 0 09/15/2018 Sex and Gender Information Value Date Recorded Sex Assigned at Male 06/25/2019 7:25 AM CDT 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:39 AM FILENET ARCHITECT Gender Identity Male 06/25/2019 7:25 AM CDT Sexual Orientation Straight 06/25/2019 7: 25 AM CDT Occupation Industry Job Start Date Job End Date Not on file Not on file Not on file Not on file documented as of this encounter Plan of Treatment Not on file documented as of this encounter Visit Diagnoses Not on filedocumented in this encounter Care Teams Care Professional Relationship Specialty Start Date End Date Abdirashid Lopez MD PCP - General Family Practice 05/09/15 07/07/22 [place] [address] [facility] [place] [place] [address] Assigned PCP 05/08/14 05/24/22 Darshan Whyte Personal Advocate & Liaison (PAL) Family Practice 06/22/20 07/02/20 documented as of this encounter
--- OUTSIDE RECORDS SUMMARY | 2024-10-04 07:07 | XMS_ITS | Encounter Summary ---
Author Organization [place] Address [address] [place] [address]. [place] [address] Care Team Providers Care Button Attaching Machine Operator Name Role Phone Abdirashid Lopez MD Primary Care Provider + [phone] Abdirashid Lopez MD Unavailable [phone] Abdirashid Lopez MD Unavailable [phone] Darshan Whyte Unavailable Unavailable Reason for Visit * Reason Onset Date Comments Refill Request 09/25/2018 evothyroxine (SY NTHROID/LEVOTHROID) 88 MCG tablet Encounter Details Date Type Department Care Team (Late st Contact Info) Description 09/25/2018 MyC Refill [address] [address] [place] [address] [place] [address] Refill Request (evothyroxine (SYNTHROID/LE... 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 Gender Identity Male 06/25/2019 7:25 AM CDT [...] Labs Lab Test 09/23/18 0824 TSH 3.38 MIXER documented in this encounter Plan of Treatment Not on file documented as of this encounter Visit Diagnoses Diagnosis Hypothyroidism Unspecified hypothyroidism documented in this encounter Care Teams Button Attaching Machine Operator Relationship Specialty Start Date End Date Abdirashid Lopez MD PCP - General Family Practice 05/09/15 07/07/22 [place] [address] [place] [address] PCP - Assigned PCP 05/08/14 11/10/18 [place] [address] [place] [address] Assigned PCP 05/08/14 05/24/22 Darshan Whyte Personal Advocate & Liaison (PAL) Family Practice 06/22/20 07/02/20 documented as of this encounter
--- OUTSIDE RECORDS SUMMARY | 2024-10-04 07:07 | XMS_ITS | Encounter Summary ---
Author Organization [place] Address [address] [place] [address] Care Team Providers Care Client Service Associate Name Role Phone Abdirashid Lopez MD Primary Care Provider + [phone] Abdirashid Lopez MD Unavailable [phone] Abdirashid Lopez MD Unavailable [phone] Darshan Whyte Unavailable Unavailable Encounter Details Date Type Department Care Team (Late st Contact Info) Description 05/30/2017 MyC Medical Advice [address] [address] Era Martinez, [facility] [address] [place], [place] [id number] Social History Tobacco Use Types Packs/Day Years Used Date Smoking Tobacco: Never Smokeless Tobacco: Never Alcohol Use Standard Drinks/Week Comments Yes 3.3 (1 standard drink = 0.6 oz p ure alcohol) occ Sex and Gender Information Value Date Recorded Sex Assigned at Male 06/25/2019 7:25 AM CDT 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 Gender Identity Male 06/25/2019 7:25 AM CDT Sexual Orientation Straight 06/25/2019 7: 25 AM CDT Occupation Industry Job Start Date Job End Date Not on file Not on file Not on file Not on file documented as of this encounter Plan of Treatment Not on file documented as of this encounter Visit Diagnoses Not on filedocumented in this encounter Care Teams Client Service Associate Relationship Specialty Start Date End Date Abdirashid Lopez MD PCP - General Family Practice 05/09/15 07/07/22 [place] [address] [place] [address] PCP - Assigned PCP 05/08/14 11/10/18 [place] [address] [place] [address] Assigned PCP 05/08/14 05/24/22 Darshan Whyte Personal Advocate & Liaison (PAL) Family Practice 06/22/20 07/02/20 documented as of this encounter
--- OUTSIDE RECORDS SUMMARY | 2024-10-04 07:07 | XMS_ITS | Clinical Summary ---
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
--- OUTSIDE RECORDS SUMMARY | 2024-10-04 07:07 | XMS_ITS | Encounter Summary ---
Author Organization [place] Address [address] [place] [address]. [place] [address] Care Team Providers Care Spoke Maker Name Role Phone Abdirashid Lopez MD Primary Care Provider + [phone] Abdirashid Lopez MD Unavailable [phone] Abdirashid Lopez MD Unavailable [phone] Darshan Whyte Unavailable Unavailable Reason for Visit * Reason Onset Date Comments Refill Request 10/25/2015 Encounter Details Date Type Department Care Team (Late st Contact Info) Description 10/25/2015 [facility] [address] [address] [place] [address] [place] [address] Refill Request Social History Tobacco Use Types Packs/Day Years Used Date Smoking Tobacco: Never Smokeless Tobacco: Never Alcohol Use Standard Drinks/Week Comments Yes 3.3 (1 standard drink = 0.6 oz p ure alcohol) Sex and Gender Information Value Date Recorded Sex Assigned at Male 06/25/2019 7:25 AM CDT 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 Gender Identity Male 06/25/2019 7:25 AM CDT Sexual Orientation Straight 06/25/2019 7: 25 AM CDT Occupation Industry Job Start Date Job End Date Not on file Not on file Not on file Not on file documented as of this encounter Plan of Treatment Not on file documented as of this encounter Visit Diagnoses Not on filedocumented in this encounter Care Teams Spoke Maker Relationship Specialty Start Date End Date Abdirashid Lopez MD PCP - General Family Practice 05/09/15 07/07/22 [place] [address] [place] [address] PCP - Assigned PCP 05/08/14 11/10/18 [place] [address] [place] [address] Assigned PCP 05/08/14 05/24/22 Darshan Whyte Personal Advocate & Liaison (PAL) [facility] Practice 06/22/20 07/02/20 documented as of this encounter
--- OUTSIDE RECORDS SUMMARY | 2024-10-04 07:07 | XMS_ITS | Encounter Summary ---
Author Organization [place] Address [address] [place] [address]. [place] [address] Care Team Providers Care Broaching Machine Set Up Operator Name Role Phone Abdirashid Lopez MD Primary Care Provider + [phone] Abdirashid Lopez MD Unavailable [phone] Abdirashid Lopez MD Unavailable [phone] Darshan Whyte Unavailable Unavailable Encounter Details Date Type Department Care Team (Late st Contact Info) Description 09/30/2018 MyC Medical Advice [address] [address] [place] [address] [place] [address] Social History Tobacco Use Types Packs/Day Years Used Date Smoking Tobacco: Never Smokeless Tobacco: Never Alcohol Use Standard Drinks/Week Comments Yes 3.3 (1 standard drink = 0.6 oz p ure alcohol) occ PHQ-2 Answer Date Recorded PHQ-2 Score 0 09/15/2018 Sex and Gender Information Value Date Recorded Sex Assigned at Male 06/25/2019 7:25 AM CDT 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 Gender Identity Male 06/25/2019 7:25 AM CDT Sexual Orientation Straight 06/25/2019 7: 25 AM CDT Occupation Industry Job Start Date Job End Date Not on file Not on file Not on file Not on file documented as of this encounter Plan of Treatment Not on file documented as of this encounter Visit Diagnoses Not on filedocumented in this encounter Care Teams Broaching Machine Set Up Operator Relationship Specialty Start Date End Date Abdirashid Lopez MD PCP - General Family Practice 05/09/15 07/07/22 [place] [address] [place] [address] PCP - Assigned PCP 05/08/14 11/10/18 [place] [address] [place] [address] Assigned PCP 05/08/14 05/24/22 Darshan Whyte Personal Advocate & Liaison (PAL) [facility] Practice 06/22/20 07/02/20 documented as of this encounter
--- OUTSIDE RECORDS SUMMARY | 2024-10-04 07:07 | XMS_ITS | Continuity of Care Document ---
Author Organization [facility] Address [address] [address] [place] [address] Phone Care Team Providers Care Hog Driver Name Role Phone Kelsi Buckley CRNA Unavailable [...] Diagnoses Date Provider Providers Copied on Encounter [facility], [address] [address], [place], [place], [id number], [place] tel:[phone] [facility] No Information 3 Marcio Dolan. [address], [id number], [place]. tel:[phone] Referring Provider: Jacky Ma, [address], [address]. tel:[phone] [facility], [address] [address], [place], [place], [id number], [place] tel:[phone] [facility] GI Symptoms or Concerns (chief complaint) Polyp of colonEncounter for screening for malignant neoplasm of colonPersonal history of colonic polypsBenign neoplasm of ascending colonBenign neoplasm of sigmoid colonBenign neoplasm of ascending colon 3 Virgie Rico. [address], [id number], [place]. tel:[phone] Referring Provider: Referral Self, USE FOR SELF REFERRALS. [facility], [address] [address], [place], [place], [id number], [place] tel:[phone] [facility] No Information 3 Jun Quiñonez. [address] [facility] [address], [place], [id number], [place]. tel:[phone] [facility], [address] [address], [place], [id number], [place] tel:[phone] [facility] Colorectal polyp detected on colonoscopyEncou nter for screening for malignant neoplasm of colonBenign neoplasm of transverse colonPersonal history of colonic polyps 7 Jason Man. [address] [facility] [address], [place], [id number], [place]. tel:[phone] Referring Provider: Referral Self, USE FOR SELF REFERRALS. [facility], [address] [address], [place], [place], [id number], tel:[phone] [facility] Colon Cancer ScreeningBenign Neoplasm ColonColon Cancer ScreeningBenign Neoplasm Colon 2 Jase Campbell. [address] [facility] [address], [place], [id number], [place]. tel:[phone] Family History Family Member Type Diagnosis Age [...] Date Status Comments Afluria Qd administered Note: [facility] bi-directional interface ; Source: Other Registry SARS-COV-2 [...] bi-directional interface ; Source: Other Registry Novel [id number], all formulations administered Note: [facility] bi-direct ional interface ; Source: Other Registry Influenza, seasonal, injectable administe red Note: [facility] bi- directional interface ; Source: Other Registry Citizen [place] Encephalitis Vaccine [place] administ ered Note: [facility] bi- directional interface ; Source: Other Registry typhoid vaccine, live, oral administered Note: [facility] bi-directional interface ; Source: Other Registry Citizen [place] Encephalitis Vaccine [place] administ ered Note: [facility] bi- directional interface ; Source: Other Registry Influenza, seasonal, injectable administe red Note: [facility] bi- directional interface ; Source: Other Registry Payers Payer name Insurance type Covered libertarian ID Authoriza tion(s) [employer] [place] BL [id number] Social History Type Description Quantity Date Captured [...]
--- OUTSIDE RECORDS SUMMARY | 2024-10-04 07:07 | XMS_ITS | Referral Summary ---
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
--- OUTSIDE RECORDS SUMMARY | 2024-10-04 07:07 | XMS_ITS | Encounter Summary ---
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 Gender Identity Male 06/25/2019 7:25 AM CDT Sexual Orientation Straight 06/25/2019 7: 25 AM CDT Occupation Industry Job Start Date Job End Date Not on file Not on file Not on file Not on file documented as of this encounter Plan of Treatment Not on file documented as of this encounter Visit Diagnoses Not on filedocumented in this encounter Care Teams Forestry Biology Specialist Relationship Specialty Start Date End Date Abdirashid Lopez MD PCP - General Family Practice 05/09/15 07/07/22 [place] [address] [place] [address] Assigned PCP 05/08/14 05/24/22 documented as of this encounter
--- OUTSIDE RECORDS SUMMARY | 2024-10-04 07:07 | XMS_ITS | Encounter Summary ---
Author Organization [place] Address [address] [place] [address]. [place] [address] Care Team Providers Care Heel Molder Name Role Phone Abdirashid Lopez MD Primary Care Provider + [phone] Abdirashid Lopez MD Unavailable [phone] Abdirashid Lopez MD Unavailable [phone] Darshan Whyte Unavailable Unavailable Reason for Visit * Reason Onset Date Comments MyChart Communication 09/06/2015 Encounter Details Date Type Department Care Team (Late st Contact Info) Description 09/06/2015 MyC [address] [address] [place] [address] [place] [address] MyChart Communication Social History Tobacco Use Types Packs/Day Years Used Date Smoking Tobacco: Never Smokeless Tobacco: Never Alcohol Use Standard Drinks/Week Comments Yes 3.3 (1 standard drink = 0.6 oz p ure alcohol) Sex and Gender Information Value Date Recorded Sex Assigned at Male 06/25/2019 7:25 AM CDT 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 Gender Identity Male 06/25/2019 7:25 AM CDT Sexual Orientation Straight 06/25/2019 7: 25 AM CDT Occupation Industry Job Start Date Job End Date Not on file Not on file Not on file Not on file documented as of this encounter Plan of Treatment Not on file documented as of this encounter Visit Diagnoses Not on filedocumented in this encounter Care Teams Heel Molder Relationship Specialty Start Date End Date Abdirashid Lopez MD PCP - General Family Practice 05/09/15 07/07/22 [place] [address] [place] [address] PCP - Assigned PCP 05/08/14 11/10/18 [place] [address] [place] [address] Assigned PCP 05/08/14 05/24/22 Darshan Whyte Personal Advocate & Liaison (PAL) Family Practice 06/22/20 07/02/20 documented as of this encounter
--- OUTSIDE RECORDS SUMMARY | 2024-10-04 07:07 | XMS_ITS | Encounter Summary ---
Author Organization [place] Address [address] [place] [address] Care Team Providers Care Project Officer Name Role Phone Abdirashid Lopez MD Primary Care Provider + [phone] Abdirashid Lopez MD Unavailable [phone] Abdirashid Lopez MD Unavailable [phone] Darshan Whyte Unavailable Unavailable Encounter Details Date Type Department Care Team (Late st Contact Info) Description 07/14/2015 [facility] Medical Advice [address] [address] Chen Rosario Social History Tobacco Use Types Packs/Day Years Used Date Smoking Tobacco: Never Smokeless Tobacco: Never Alcohol Use Standard Drinks/Week Comments Yes 3.3 (1 standard drink = 0.6 oz p ure alcohol) Sex and Gender Information Value Date Recorded Sex Assigned at Male 06/25/2019 7:25 AM CDT 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 Gender Identity Male 06/25/2019 7:25 AM CDT Sexual Orientation Straight 06/25/2019 7: 25 AM CDT Occupation Industry Job Start Date Job End Date Not on file Not on file Not on file Not on file documented as of this encounter Plan of Treatment Not on file documented as of this encounter Visit Diagnoses Not on filedocumented in this encounter Care Teams Project Officer Relationship Specialty Start Date End Date Abdirashid Lopez MD PCP - General Family Practice 05/09/15 07/07/22 [place] [address] [place] [address] PCP - Assigned PCP 05/08/14 11/10/18 [place] [address] [place] [address] Assigned PCP 05/08/14 05/24/22 Darshan Whyte Personal Advocate & Liaison (PAL) Family Practice 06/22/20 07/02/20 documented as of this encounter
== END 2024-10-04 07:31 | disposition home or self-care (01) ==
PROVIDERS: Emergency Provider Family Medicine; PCP Student in an Organized Health Care Education/Training Program
DX: N41.9 Inflammatory disease of prostate, unspecified (principal)
CPT/HCPCS: 36415; 80048; 81001; 85025; 86140; 87086; 87631; 94761; 99283; 99284; A9270